=== PATIENT | male | born 1960 | race Caucasian/White ===

== ENCOUNTER 2017-01-03 22:05 | Inpatient (IN) | payer OTHER, MEDICARE ==
[~2017-01-03] VITALS: Ht 165.1 cm; Wt 156.8 kg
[2017-01-04] VITALS (39 sets, daily range): BP systolic 68–122; BP diastolic 43–65; O2SAT 99
[2017-01-04] MEDS ORDERED: PROPOFOL 1,000 MG/100 ML VIAL As Ordered ONE (01:09)
[2017-01-04] MEDS ORDERED: JANU100T PO (01:41)
[2017-01-04] MEDS ORDERED: METF500T13 PO (01:41)
[2017-01-04] MEDS ORDERED: PRED5TA PO (01:41)
[2017-01-04] MEDS ORDERED: APIDINJ INJ (01:41)
[2017-01-04] MEDS ORDERED: PROAAER10 INH (01:41)
[2017-01-04] MEDS ORDERED: IPRASOL4 INH ×2 (01:41)
[2017-01-04] MEDS ORDERED: INSUDET SC (01:41)
[2017-01-04] MEDS ORDERED: COMBAER6 INH (01:41)
[2017-01-04] MEDS ORDERED: RAMI5CA PO (01:41)
[2017-01-04] MEDS ORDERED: IPRATROPIUM 0.5MG/ALBUTEROL 2.5MG INH SOL UD 3ML (DUONEB)(J7620) INH PRN (01:45)
[2017-01-04] MEDS ORDERED: ONDANSETRON 4MG/2ML VIAL (J2405) IV PRN (01:45)
[2017-01-04] MEDS ORDERED: GLUCOSE 4 GM CHEW TABLET PO PRN (01:45)
[2017-01-04] MEDS ORDERED: DEXTROSE 50% 50 ML SYRINGE IV PRN (01:45)
[2017-01-04] MEDS ORDERED: GLUCAGON FOR INJ 1 MG VIAL (J1610) SC PRN (01:45)
[2017-01-04] MEDS: NS 1,000 ML IV SCH ×3 (01:59→21:30)
[2017-01-04] MEDS ORDERED: MORPHINE 2 MG/ML 1ML SYRINGE IV PRN (02:00)
[2017-01-04] MEDS: HumaLOG INSULIN (NovoLOG) PER UNIT SC SCH ×4 (02:15→17:40)
[2017-01-04] MEDS: IPRATROPIUM 0.5MG/ALBUTEROL 2.5MG INH SOL UD 3ML (DUONEB)(J7620) NEB SCH ×6 (02:38→23:28)
[2017-01-04] MEDS: PROPOFOL 1,000 MG in APPROPRIATE DILUENT 1 EA IV SCH ×5 (02:43→20:51)
[2017-01-04] MEDS ORDERED: NOREPINEPHRINE BITARTRATE 8 MG in D5W 500 ML IV SCH (02:45)
[2017-01-04 03:16] LABS: ABG BASE EXCESS 1.2 (-2.0-2.0); ABG HCO3 26.6 MEQ/L (22.0-26.0); ABG PARTIAL PRESSURE CO2 45.2 mmHg (35.0-45.0); ABG STANDARD HCO3 25.5 MEQ/L (22.0-26.0); ABG pH (ARTERIAL) 7.388 UNITS (7.350-7.450)
[2017-01-04] MEDS: MIDAZOLAM INJ 2 MG/2 ML VIAL (J2250) IV PRN (03:25)
[2017-01-04 03:27] LABS: ADD MANUAL DIFFER YES; DIFF SLIDE NUMBER 91; MEAN CORPUSCULAR HEMOGLOBIN 29.5 pg (27.0-33.0); MEAN CORPUSCULAR HGB CONC 32.6 g/dl (32.0-36.5); MEAN CORPUSCULAR VOLUME 90.6 fl (80.0-96.0); RED CELL DISTRIBUTION WIDTH 13.7 % (11.5-14.5); WHITE BLOOD COUNT 16.3 K/mm3 (4.0-10.0)
[2017-01-04 04:00] LABS: CREATININE FOR GFR 1.43 MG/DL (0.70-1.30); GLOMERULAR FILTRATION RATE 54.9 (>56); POTASSIUM SERUM 4.6 MEQ/L (3.5-5.1)
[2017-01-04 04:03] LABS: PLATELET COUNT, AUTOMATED 54 k/mm3 (150-450)
[2017-01-04 04:04] LABS: ALBUMIN/GLOBULIN RATIO 0.5 (1.00-1.93); BILIRUBIN,TOTAL 0.7 MG/DL (0.2-1.0); CALCIUM LEVEL 8.4 MG/DL (8.5-10.1); CREATININE FOR GFR 1.4 MG/DL (0.70-1.30); GLOMERULAR FILTRATION RATE 56.2 (>56); POTASSIUM SERUM 4.6 MEQ/L (3.5-5.1)
[2017-01-04 04:07] LABS: BANDS 7 % (< 11)
[2017-01-04 04:08] LABS: TOXIC GRANULATION 1+; TOXIC VACUOLATION 1+
[2017-01-04] MEDS: HEPARIN SOD (PORCINE) 5000 UNITS/ML VIAL SC SCH ×2 (05:47→05:53)
[2017-01-04] MEDS ORDERED: HYDROCORTISONE 100 MG/2 ML VIAL (J1720) IV SCH (06:00)
[2017-01-04] MEDS ORDERED: AMIKACIN 1000 MG/4 ML VIAL (J0278) IV SCH (06:15)
--- NOTE | 2017-01-04 06:15 | HPEPDOC ---
General Date of Admission Jan 04, 2017 at 00:46 Other Providers PCP: WILI Khan Expediter: Dr Laazro Chief Complaint The patient is a 56-year-old male admitted with a reason for visit of Respiratory Failure. Source: Family, RN notes reviewed Exam Limitations: Clinical conditions History of Present Illness This is a 56-year-old male admitted with a PMH of morbid obesity, HTN, DM2, COPD -steroid dependent, chronic hypoxic respiratory failure on 3L home o2, JOE on CPAP, tobacco abuse, neuropathy, psoriasis, scrotal cyst, L arm weakness secondary brachial plexus injury who was transferred from [facility] for [facility] with acute hypercapnic respiratory failure on [facility] ventilation. Pt had been admitted the prior day at [facility] with complaints of malaise, decreased po intake, dyspnea and subjective fevers. His initial CXR did not show any sig infiltrate and while his initial ABG showed some hypoxia, there was no evidence of acute CO2 retention and was mildly acidotic at 7.35. He was also noted to have aaliyah with a cre of 1.5 (baselilne <1), lactic acidosis of 5, leukocytosis of 14, and hyperglycemia in 300's. Pt started on levo due to reported PCN allergy with mild improvement of his cre (1.2), and with his LA normalizing and his WBC improving. Later that day, pt noted to be lethargic and ABG drawn at that time showed acute co2 retention with pCO2 in 70's and pH of about 7.2. Pt intubated with report that purulent sputum suctioned after intubation, but no food to suggest aspiration. His BP remained stable throughout. Pt's abx broadened to add clinda and [facility] called for transfer. Prior transfer, pt started bucking the vent and given propofol which dropped his bp to 80's and levophed started through a peripheral. CVC placed by attg at [facility] and pt transferred to [facility] for higher level of care. Home Medications Scheduled (Apidra) 100 Unit/Ml Inj, 15 UNIT INJ WM, (Reported) Albuterol/Ipratropium (Combivent Respimat 20-100 Mcg/Act) 1 Aer Aer, 1 PUFF INH QID, (Reported) Albuterol/Ipratropium (Ipratropium Cyclone/Albut 0.5-2.5 (3) mg/3Ml) 1 Dnoell Donell, 1 DONELL INH QID, (Reported) Insulin Detemir (Levemir) 1 Units/0.01 Ml Susp, 80 UNITS SC BID, (Reported) Metformin Hydrochloride (Metformin HCl) 500 Mg Tab, 1,000 MG PO BID, (Reported) Prednisone (Prednisone) 5 Mg Tab, 15 MG PO DAILY, (Reported) Ramipril (Ramipril) 5 Mg Cap, 5 MG PO DAILY, (Reported) Sitagliptin Phosphate (Januvia) 100 Mg Tab, 100 MG PO DAILY, (Reported) Scheduled PRN Albuterol Sulfate (Proair Hfa) 108 Mcg/Act Aer, 2 PUFF INH Q4H PRN for SHORTNESS OF BREATH, (Reported) Albuterol/Ipratropium (Ipratropium Cyclone/Albut 0.5-2.5 (3) mg/3Ml) 1 Donell Donell, 1 DONELL INH Q4H PRN for SHORTNESS OF BREATH, (Reported) Allergies Coded Allergies: Penicillins (Unverified Allergy, Severe, ANAPHYLAXIS, 01/04/17) Past Medical History Medical History 1. Morbid obesity 2. HTN 3. DM2 4. COPD steroid-dependent 5. Chronic hypoxic respiratory failure 3L home o2 6. JOE on CPAP 7. Tobacco abuse 8. Neuropathy 9. Psoriasis 10. L arm hemiplegia weakness secondary brachial plexus injury Surgical History 1. L shoulder nerve graft 2. Scrotal cyst drainage x2 Family History Significant Family History: No pertinent family hx Social History * Smoker: current smoker Alcohol: rarely Recent Travel/Sick Contacts: Denies: Recent travel Psychosocial History: No pertinent psych hx Review of Symptoms Hematologic: Denies: Bruising, Bleeding Excessively, Petecchia, Purpura, Enlarged Lymph Nodes, Other Hematologic Other systems As per HPI, unable to obtain from pt due to intubation Physical Examination General Exam: Positive: Other (Intubated and sedated) Eye Exam: Positive: Conjunctiva & lids normal, Negative: Sclera icteric ENT Exam: Positive: Atraumatic, Mucous membr. moist/pink (ET tube) Neck Exam: Positive: Supple, Negative: Lymphadenopathy Chest Exam: Positive: Rhonchi (Diffuse RML/RLL), Diminished (L base), Negative: Wheezing Heart Exam: Positive: Rate Normal, Regular Rhythm, Normal S1, Normal S2, Negative: Tachycardic, Bradycardic, Gallops, Murmurs, Rubs Abdomen Exam: Positive: Normal bowel sounds, Negative: BS Hyperactive, BS Hypoactive Extremity Exam: Negative: Clubbing, Cyanosis, Edema (Feet cool R>L, but with normal cap refill (<3 secs)), Normal pulses Skin Exam: Positive: Nl turgor and temperature, Rash (Diffuse psoriatic rash), Breakdown (Intertrigal folds with lara and some maceration of skin) Neuro Exam: Positive: Other (Moved feet to noxious stimuli (normal babinski)) Psych Exam: Positive: Other (Pt sedated, could not assess) Vital Signs Vital Signs Date Time Temp Pulse Resp B/P (MAP) Pulse Ox O2 Delivery O2 Flow Rate FiO2 01/04/17 04:00 20 01/04/17 04:00 Ventilator 01/04/17 04:00 98.9 116 101/53 (69) 94 40 Laboratory Data Labs 24H Laboratory Tests 2 01/04/17 01:15: Bedside Glucose (Misc Panel) 215H 01/04/17 02:37: Blood Gas Bicarbonate Standard 25.5, Arterial Blood pH 7.388, Arterial Blood Partial Pressure CO2 45.2H, Arterial Blood Partial Pressure O2 99.0, Arterial Blood Total CO2 28.0, Arterial Blood HCO3 26.6H, Arterial Blood Base Excess 1.2 , Arterial Blood Oxygen Saturation 97.8, Lactic Acid Level 1.6 01/04/17 03:18: Neutrophils 75, Band Neutrophils 7, Lymphocytes (Manual) 10L, Monocytes (Manual ) 8, Toxic Granulation 1+, Toxic Vacuolation 1+, Platelet Estimate DECREASED, Anion Gap 7L, Glomerular Filtration Rate 56.2, Blood Urea Nitrogen 55H, Creatinine 1.40H, Sodium Level 138, Potassium Level 4.6, Chloride Level 104, Carbon Dioxide Level 27, Calcium Level 8.4L, Phosphorus Level 2.0L, Aspartate Amino Transf (AST/SGOT) 41H, Alanine Aminotransferase (ALT/SGPT) 43, Lactate Dehydrogenase 227, Total Creatine Kinase 312H, Alkaline Phosphatase 118H, Total Bilirubin 0.7, Triglycerides Level 177H, Cholesterol Level 82, Total Protein 6.0L, Albumin 2.0L, Albumin/Globulin Ratio 0.50L, Thyroid Stimulating Hormone ( TSH) 0.619 CBC/BMP Laboratory Tests 01/04/17 03:18 Red Blood Count 4.60, Mean Corpuscular Volume 90.6, Mean Corpuscular Hemoglobin 29.5, Mean Corpuscular Hemoglobin Concent 32.6, Red Cell Distribution Width 13.7 , Calcium Level 8.4 L, Phosphorus Level 2.0 L, Aspartate Amino Transf (AST/SGOT ) 41 H, Alanine Aminotransferase (ALT/SGPT) 43, Lactate Dehydrogenase 227, Total Creatine Kinase 312 H, Alkaline Phosphatase 118 H, Total Bilirubin 0.7, Triglycerides Level 177 H, Cholesterol Level 82, Total Protein 6.0 L, Albumin 2.0 L Assessment/Plan This is a 56-year-old male admitted with a PMH of morbid obesity, HTN, DM2, COPD -steroid dependent, chronic hypoxic respiratory failure on 3L home o2, JOE on CPAP, tobacco abuse, neuropathy, psoriasis, scrotal cyst, L arm weakness secondary brachial plexus injury who was transferred from [facility] for [facility] with [facility] 1. PNA and sepsis with multi-organ failure (resp failure on vent; hypotension on pressors, aaliyah) Pt started on levo due to pcn allergy Clinda added when pt condition worsened Would continue levo, add amikacin (pt has reported allergy of anaphylaxis to pcn ) and vanc (possible community acquired MRSA) Elevate HOB to 30-degrees Rose for strict i/o Propofol drip for sedation Versed prn agitation Morphine prn for pain Chlorhexadine wash for mouth Continue nebs q6h Continue iv steroids-solucortef 100mg iv q8 Repeat CXR and abg in am Pulm consult appr-dr kate for help with vent management 2. COPD steroid dependent Continue nebs q6h with q4h prn Steroids changed from solumedrol to solucortef due to sepsis on vent Repeat cxr/abg in am 3. DM2 Metformin 1,000mg held due to aaliyah Januvia 100mg held due to intubation Continue levemir Continue FS with coverage q6h Adjust levemir based on 24hr coverage needs 4. HTN Ramapril held due to hypotension and aaliyah 5. DVT prophylaxis SCD-pt with thrombocytopenia (likely from sepsis) but would not use pharmacologic prophylaxis 6. 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 Plan / VTE VTE Prophylaxis Ordered?: Yes Plan / Urinary Catheter Urinary Catheter: Place Rose Reason for insertion/continuin: Critical Pt monitoring Norm Puentes MD Jan 04, 2017 05:14
[2017-01-04] MEDS ORDERED: VANCOMYCIN HCL 1,000 MG in D5W 0 ML IV SCH (06:30)
[2017-01-04] MEDS ORDERED: LevoFLOXacin IV 750 MG in APPROPRIATE DILUENT 1 EA IV SCH (07:00)
[2017-01-04] MEDS ORDERED: VANCOMYCIN HCL 1,000 MG, VIAL MATE ADAPTER 1 EACH in D5W 250 ML IV SCH (08:00)
[2017-01-04] MEDS ORDERED: IPRATROPIUM 0.5MG/ALBUTEROL 2.5MG INH SOL UD 3ML (DUONEB)(J7620) INH SCH (08:00)
--- NOTE | 2017-01-04 08:08 | REP ---
Clinical: Swelling. Technique: Weaver scale and color Doppler evaluation using linear high frequency transducer. Findings: Ultrasound examination of the right and left lower extremity deep venous structures from the common femoral vein to the popliteal vein demonstrates normal compressibility flow and wave patterns in response to respiration and augmentation. There is no evidence for deep venous thrombosis. Impression: No evidence for deep venous thrombosis bilateral lower extremities . Signed by Dave Tomas MD 01/04/2017 08:00 A
[2017-01-04] MEDS: PANTOPRAZOLE 40MG INJ (PROTONIX) (C9113) IV SCH (08:34)
[2017-01-04] MEDS: CHLORHEXIDINE GLUCONATE 0.12 % 15ML UDC (PERIDEX ORAL RINSE) MT SCH ×2 (08:34→22:16)
[2017-01-04] MEDS: LEVEMIR (INSULIN DETEMIR) 1 UNITS/0.01ML SC SCH ×2 (08:35→22:15)
--- NOTE | 2017-01-04 08:46 | REP ---
PORTABLE CHEST, ONE VIEW: HISTORY: Tube placement. COMPARISON: 12:04 A.M., 01/04/2017. A minimal increase interstitial markings is present in the lungs consistent with chronic interstitial change. The heart is normal in size. The pulmonary vasculature is normal in appearance. An ET tube and central venous line are present. IMPRESSION: No acute disease. Signed by Travis Faustin MD 01/04/2017 08:52 A
--- NOTE | 2017-01-04 08:49 | REP ---
PORTABLE CHEST, ONE VIEW: HISTORY: Respiratory failure. COMPARISON: 1:16 a.m., 01/04/2017. An increase in interstitial markings is present in the lungs consistent with chronic interstitial change. Increased density is present in the lower lobes consistent with bibasilar atelectasis of infiltrates. The heart is normal in size. The pulmonary vasculature is normal in appearance. An ET tube, NG tube and central line are present. IMPRESSION: Bibasilar atelectasis or infiltrates. Signed by Travis Faustin MD 01/04/2017 08:52 A
[2017-01-04] MEDS: LevoFLOXacin IV 750 MG in APPROPRIATE DILUENT 1 EA IV SCH (09:00)
[2017-01-04] MEDS ORDERED: VANCOMYCIN HCL 1,000 MG, VIAL MATE ADAPTER 1 EACH in D5W 250 ML IV ONE (09:00)
[2017-01-04] MEDS ORDERED: LEVEMIR (INSULIN DETEMIR) 1 UNITS/0.01ML SC SCH (09:00)
--- NOTE | 2017-01-04 10:51 | PHACANCOPD ---
PHARMACY VANCOMYCIN DOSING Pt Demographics Demographics Patient Age:56 , Weight:155.300 , Gender: male Adjusted Body Weight Date: 01/04/17, Adjusted Body Weight: [99] Kg Events Past 24 Hours Events Past 24 Hours: YES: Dialysis, Diuretic Therapy, Change in CrCl, Fever, Elevation in WBC, Pending Diagnostics, Pending Procedures, Other Vancomycin Vancomycin indication: POSSIBLE MRSA, PNA, SEPSIS Vancomycin Target Ranges: 15-20 mcg/ml Vancomycin Load Y/N: Yes Load Dose Date Time Vancomycin Load Dose: 2000 MG Date: 01/04/2017 Time: 0800 Vancomycin Dose Date: 01/04/17. Current Vancomycin Dose: [1000MG IV Q12H @ 1999] Intermittent Dosing?: No Labs Labs Item Value Date Time Creatinine 1.43 MG/DL H 01/04/17317 Creatinine 1.40 MG/DL H 01/04/178 White Blood Count 16.3 K/mm3 H 01/04/17317 Creatinine Clearance Date:01/04/17. Creatinine Clearance: [50ML/MIN]. Pending Labs VANCO TROUGH 01/05 @1900 Assessment and Plan Maintaining Current Dose?: Yes Reason for dose change: No Dose Change Pharmacist Note Pharmacist Note Date: 01/04/17. Pharmacist note: Patient was administered Vanco 2 gram loading dose @ 0800 followed by 1 gram q12h. Patient is has ALFRED. Trough is scheduled after 3 doses (01/05/17 @ 1900). Monitor renal function and adjust dose as needed. JUAN POSEY PHARMACY Jan 04, 2017 10:51
--- NOTE | 2017-01-04 11:44 | CCN ---
DATE: 01/04/2017 NOTE: I was asked by Dr. Puentes to emergently evaluate Mr. Spence for acute on chronic respiratory failure requiring mechanical ventilation. Mr. Spence is a 56-year-old now with past medical history consisting of chronic obstructive pulmonary disease (COPD), diabetes mellitus, type 2, morbid obesity, and obstructive sleep apnea, who presented to [facility] on 01/02/2017 with complaints of several days of feeling unwell with a dry mouth, feelings of dehydration, decreased intake. He had a minimal productive cough and severe chills, the day prior to his admission. He was admitted with what was felt to be a COPD exacerbation, acute kidney injury, uncontrolled diabetes and possible pneumonia and scrotal cellulitis. He had been placed on Levaquin, clindamycin, and per the discharge summary, his kidney injury and elevated lactic acid were improved. According to his , one of his sons was with him when he seemed to acutely decompensate. She reports that a code was called and then he was intubated. I do not have any further information as to what it was felt caused the decompensation. It was reported to us at the time of his intubation, that his blood pressure was normal. Subsequent to intubation, he became hypotensive and required vasopressor therapy. He was then transferred to [facility]. OBJECTIVE: GENERAL: Mr. Spence is lying in bed synchronous with the ventilator. VITAL SIGNS: Temperature 98.6, pulse 118, respiratory rate 25, blood pressure 97/55 with an MAP of 69, GOLDMAN 293 and an FiO2 0.4. HEENT: Anicteric, pupils 2 mm and reactive. Nares: Patent bilaterally. Oropharynx: ET tube and OG tube in place. NECK: Supple, unable to determine jugular venous distention (JVD). LUNGS: Symmetric excursion, good air entry, no wheeze, rhonchi or significant crackles. Decreased breath sounds at the bases bilaterally. Normal I/E. NO accessory muscle uses or retractions. CARDIOVASCULAR: Tachycardic regular rhythm, normal S1, S2, no murmur rub or gallop appreciated. ABDOMEN: Positive bowel sounds, soft, nondistended, nontender with no hepatosplenomegaly or masses appreciated. Scrotal area is very erythematous, edematous but not excoriated. EXTREMITIES: Lower extremities are cool, there is 1+ pedal edema bilaterally, palpable pedal pulses. No clubbing or cyanosis. LABORATORY DATA: The following labs are from 01/03/2017 (0600) from [facility]: Sodium 134, potassium 5.0, chloride 93, bicarbonate 22, glucose 448, BUN 46, creatinine 1.2. Total protein 6.8, albumin 3.2, calcium 8.7, total bilirubin o.8, alkaline phosphatase 144, AST 37, ALT 52, anion gap 19. Lactic acid 2.5. Hemoglobin 14.2, hematocrit 42.3, platelet count 78,000, white blood cell count 14,400 with a differential of 91% neutrophils, 1% lymphocytes, 7% monocytes. Urinalysis from 01/02/2017 showed a specific gravity of 1.02, pH of 5, glucose of 1000, 30 of protein, 50 of blood. His CBC from 01/02/2017, which was on presentation was hemoglobin 13.5, hematocrit 40.3, platelet count 96,000 with a white blood cell count of 12,400 with a differential of 83% neutrophils, 4% bands, and 6% monocytes. Arterial blood gas on 01/02/2017 on 4 liters was 7.34/46/91 with a measured saturation of 96% and a base excess of -2.0. I reviewed his chest x-ray as well as the report from 01/02/2017. That showed normal appearing cardiac silhouette and pulmonary vascular shadows. Normal appearing mediastinal region. There were chronic interstitial changes. No consolidative regions. I reviewed his chest x-rays from 01/03/2017 and they were under penetrated and rotated. I did not feel that I can fairly comments as to whether or not there may have been some increased interstitial markings or not. The endotracheal tube was in good position. On the chest x-ray from 01/04/2017, endotracheal tube is in good position. Again, I could not see any significant difference, but the bases were under penetrated and there was a pad overlying the center of the chest. ASSESSMENT: 1. Acute on chronic respiratory failure: I do not have much history as to how acute these changes were. If it was acute, differential would include aspiration, mucous plugging, cardiac event, pulmonary embolism, or other. As to the chronic portion, he carries the label of COPD, though I do not know how that diagnosis was made. Sleep apnea would be in the differential for causing the chronic failure as would be obesity hypoventilation syndrome. 2. Hypotension: This is relatively new difficulty and followed intubation. I suspect it is secondary to medications given for that process. Differential would include sepsis, pulmonary embolus, or other. 3. Sepsis. It is not clear that he has severe sepsis. 4. Diabetes mellitus. 5. Acute kidney injury. 6. Probable scrotal cellulitis. 7. Possible COPD (I do not have spirometric numbers). 8. Obstructive sleep apnea, on bilevel therapy: He was evaluated in [address] Lazaro and his does not believe that he has followed up with them. I do not know his weight at the time of diagnosis versus now whether any adjustments have ever been made or considered in his bilevel therapy. 9. Extreme obesity. 10. Tobacco use history ongoing at the time of admission (1-1/2 packs per day). 11. Deep venous thrombosis prophylaxis, subcutaneous heparin. 12. Stress ulcer prophylaxis: Proton pump inhibitor. 13. Nutrition: Nothing by mouth. RECOMMENDATIONS: 1. Given the labs were at 6 -o'clock in the morning yesterday and he has had major clinical changes, we should repeat CBC, chemistries at this time as well as a lactic acid. 2. Will place him on lung protective ventilator strategy with his 6 mL/kilo predicted body weight tidal volume being 466 mL. 3. While he has acute onset of shortness of breath and pulmonary embolism is in the differential, I am not highly suspicious of it. Unfortunately, his body habitus and kidney function limit some of the studies that could be done, but I feel we should obtain lower extremity Dopplers. 4. Antibiotics and glucose management per hospital service. Critical care time: 70 minutes not including procedure time. MTDD
[2017-01-04] MEDS: ACETAMINOPHEN TAB 650MG DOSE (2X325MG) PO PRN (12:21)
[2017-01-04] MEDS ORDERED: POTASSIUM PHOSPHATE INJ 30 MMOL in D5W 500 ML IV ONE (13:00)
--- NOTE | 2017-01-04 17:42 | REP ---
Scrotal sonography: History: Scrotal swelling. Findings: High-resolution bilateral scrotal sonography demonstrates homogeneous testicular parenchyma on both sides. There is no evidence of intratesticular mass lesion. No hydrocele or hernia is seen. Right testis measures 4.5 x 2.1 x 2.5 cm. Left testicular dimensions are 4.6 x 1.6 x 2.6 cm. Epididymi are unremarkable and symmetric. Normal Doppler flow is seen in each testis. Resistive indices are 0.52 on the right and 0.54 on the left. Impression: Unremarkable scrotal sonography. Normal Doppler flow. No intratesticular mass lesion seen. Signed by Rico Tijerina MD 01/05/2017 09:24 A
[2017-01-04] MEDS: VANCOMYCIN HCL 1,000 MG, VIAL MATE ADAPTER 1 EACH in D5W 250 ML IV SCH (20:50)
--- NOTE | 2017-01-04 21:27 | CCN ---
DATE: 01/04/2017 NOTE: Mr. Spence remains critically ill with acute respiratory failure leading to mechanical ventilation. Overnight, his vasopressors have been decreased and he remains with a good mean arterial pressure (MAP). He has had fevers. On his sedation holiday, he was following commands. GENERAL: He is synchronous with the ventilator. VITAL SIGNS: Temperature 101.4, pulse 111, respiratory rate 16, blood pressure 110/58 with a MAP of 75, SpO2 of 99% on an FiO2 of 0.4. HEENT: Anicteric. Pupils equal, round, and reactive to light (PERRL). Nares patent bilaterally. Endotracheal (ET) and orogastric (OG) tube in place. NECK: Possibly mild increased jugular venous pressure (JVP), though difficult exam. Trachea is midline. LUNGS: Symmetric excursion. Good air entry. No wheeze, rhonchi, or crackle on tidal excursion. Diminished breath sounds at the bases bilaterally. No significant crackles or wheeze. Normal I-to-E. CARDIOVASCULAR: Tachycardiac. Regular rhythm. Normal S1, S2. No murmur, rub, or gallop appreciated. ABDOMEN: Positive bowel sounds. Soft, nondistended. No hepatosplenomegaly or masses appreciated on difficult exam given body habitus. SCROTUM: No significant edema. Decreased erythema. No clear findings suggestive of cellulitis. EXTREMITIES: 1+ pedal edema bilaterally. Sequential compression devices (SCDs) and thromboembolism deterrents (TEDs) in place. LABORATORY DATA: Arterial blood gas on pressure-regulated volume control (PRVC) with a tidal volume of 415, rate 15, PEEP 8, and FiO2 of 0.4 was 7.39/45/99 with a measured saturation 98% and a base excess of 1.2. Chemistry showed sodium 138, potassium 4.6, chloride 104, bicarbonate 27, anion gap 7, BUN 55, creatinine 1.4, glucose 237, lactic acid 1.6, calcium 8.4, phosphorus 2.0, magnesium 3.0, total bilirubin 0.7, AST 41, ALT 43, alkaline phosphatase 118, LDL 227, CK 312, total protein 6.0, albumin 2.0, TSH 0.619, cortisol pending. CBC showed a hemoglobin of 13.6, hematocrit 41.7, platelet count 54,000, and white blood cell count 16,300 with a differential of 75% neutrophils, 7% bands, and 10% lymphocytes. I reviewed his chest x-ray as well as the report from earlier this morning. That x-ray showed possibly mildly enlarged cardiac silhouette. I can see both diaphragms. No consolidated region. ET tube is in good position. Right internal jugular (IJ) is in good position. Lower extremity Doppler report is negative bilaterally. IMPRESSION: 1. Acute hypoxemic respiratory failure leading to mechanical ventilation. Etiology for the acute portion again is unclear. This does not appear to be a chronic obstructive pulmonary disease (COPD) exacerbation. No signs suggestive of significant pneumonic process. Again, it is not clear if this is acute onset , in which case the differential would include flash pulmonary edema, cardiac arrhythmia, or other. He has a negative bilateral lower extremity Doppler, making pulmonary embolism (PE) less likely. 2. Hypotension on vasopressors. The hypotension came after intubation and while I feel he has sepsis, I do not feel this is reflective of severe sepsis with shock. Lactic acid only 1.7. 3. Sepsis. He has an elevated white blood cell (WBC) count and a fever. The WBC count is difficult to interpret given that he has been on corticosteroids. However, he has positive blood cultures that would be most consistent with a skin source, question if this is secondary to cellulitis. 4. Thrombocytopenia. This is likely secondary to sepsis. Will need to exclude disseminated intravascular coagulation (DIC). 5. Diabetes mellitus. 6. Acute kidney injury. 7. Possible scrotal cellulitis, though it looks better today. 8. Chronic obstructive pulmonary disease. 9. Cor pulmonale per history. 10. Tobacco usage, ongoing at the time of admission. 11. Deep venous thrombosis (DVT) prophylaxis with subcutaneous heparin. 12. Stress ulcer prophylaxis. Proton pump inhibitor. 13. Nutrition. Nothing by mouth. RECOMMENDATIONS: 1. Electrolyte replacement per hospitalist team. 2. Would obtain an echocardiogram. 3. Will obtain a central venous pressure (CVP) to help direct fluid management. 4. Will send blood cultures and urine culture (UC). A sputum culture has been sent. 5. Will continue to followup with [facility] cultures. They had positive blood cultures as outlined below. They did not send a urine culture. A sputum culture was sent there last evening. 6. Will attempt to clarify his outpatient medications and past history. 7. Will consult ear, nose, and throat (ENT), as we were told that anesthesia reported an abnormal lesion on his epiglottis. I do not consider this an emergent consultation. 8. Continue other current cares. ADDENDUM: 1. Blood culture, polymerase chain reaction (PCR) from [facility] from a culture done 01/03/2017 showed Streptococcus and Streptococcus group B positive. 2. Complete pulmonary function test from 03/09/2006, when he weighed 390 pounds , showed a nonspecific decrease in FVC with an FVC of 1.36 liters (27%) and a FEV1 of 0.81 liters (20%). FEV1/FVC ratio was normal at 60%. Normal inspiratory flow volume limb. No significant bronchodilator response. He was unable to perform lung volumes. Diffusing capacity uncorrected for hemoglobin was mildly decreased at 24.7 (67% predicted). Arterial blood gas on room air showed a compensated respiratory acidosis with hypoxemia. He had a pH of 7.36, pCO2 of 73, and pO2 of 42 with a measured saturation of 73.9%. 3. Per Dr. Lazaro's note from 07/30/2004, he had a diagnosis of obstructive sleep apnea (JOE) that was reasonably palliated on bilevel positive airway pressure (BiPAP) at 19/15 with 4 liters oxygen bleed-in, chronic obstructive bronchitis, chronic hypoxemia and hypercapnic respiratory failure, restrictive ventilatory impairment, cor pulmonale, diabetes mellitus, and tobacco abuse. CRITICAL CARE TIME: 40 minutes, not including procedure time. Edited: sunita 01/04/2017 1707 MTDD
[2017-01-04 21:34] LABS: INR 1.08
[2017-01-04 21:51] LABS: MEAN CORPUSCULAR HEMOGLOBIN 29.8 pg (27.0-33.0); MEAN CORPUSCULAR HGB CONC 32.4 g/dl (32.0-36.5); MEAN CORPUSCULAR VOLUME 91.9 fl (80.0-96.0); RED CELL DISTRIBUTION WIDTH 13.9 % (11.5-14.5); WHITE BLOOD COUNT 12.7 K/mm3 (4.0-10.0)
[2017-01-04 22:03] LABS: FIBRINOGEN 815 MG/DL (221-452)
[2017-01-04 22:24] LABS: CORTISOL AM 61.9 UG/DL (4.3-22.4)
[2017-01-05] VITALS (18 sets, daily range): BP systolic 92–149; BP diastolic 52–63; O2SAT 94–99
[2017-01-05] MEDS: HumaLOG INSULIN (NovoLOG) PER UNIT SC SCH ×4 (00:45→17:55)
[2017-01-05] MEDS: MIDAZOLAM INJ 2 MG/2 ML VIAL (J2250) IV PRN (02:21)
[2017-01-05] MEDS: PROPOFOL 1,000 MG in APPROPRIATE DILUENT 1 EA IV SCH (03:17)
[2017-01-05] MEDS: IPRATROPIUM 0.5MG/ALBUTEROL 2.5MG INH SOL UD 3ML (DUONEB)(J7620) NEB SCH ×6 (03:42→19:32)
[2017-01-05] MEDS: NS 1,000 ML IV SCH ×2 (05:51→16:31)
[2017-01-05 06:28] LABS: MEAN CORPUSCULAR HEMOGLOBIN 29.7 pg (27.0-33.0); MEAN CORPUSCULAR HGB CONC 32.4 g/dl (32.0-36.5); MEAN CORPUSCULAR VOLUME 91.8 fl (80.0-96.0)
[2017-01-05 06:36] LABS: ANION GAP 4 MEQ/L (8-16); BLOOD UREA NITROGEN 46 MG/DL (7-18); CALCIUM LEVEL 8.3 MG/DL (8.5-10.1); CARBON DIOXIDE LEVEL 29 MEQ/L (21-32); CHLORIDE LEVEL 107 MEQ/L (98-107); CREATININE FOR GFR 0.94 MG/DL (0.70-1.30); GLOMERULAR FILTRATION RATE > 60.0 (>56); GLUCOSE, FASTING 122 MG/DL (70-105); POTASSIUM SERUM 3.9 MEQ/L (3.5-5.1); SODIUM LEVEL 140 MEQ/L (136-145)
[2017-01-05] MEDS: VANCOMYCIN HCL 1,000 MG, VIAL MATE ADAPTER 1 EACH in D5W 250 ML IV SCH ×2 (07:55→19:59)
[2017-01-05] MEDS: LEVEMIR (INSULIN DETEMIR) 1 UNITS/0.01ML SC SCH ×2 (09:00→21:34)
[2017-01-05] MEDS ORDERED: methylPREDNISolone INJ 40 MG/1 ML VIAL (J2920) IV SCH (09:00)
--- NOTE | 2017-01-05 09:20 | REP ---
PORTABLE CHEST: AP portable view of the chest is performed and compared with prior study of 01/04/2017. Right central venous catheter, endotracheal tube and nasogastric tube are again noted. There is cardiomegaly. There are bibasilar infiltrates/atelectasis again noted. These appear mildly increased on the left and unchanged on the right. Signed by Favio Weaver MD 01/05/2017 05:35 P
[2017-01-05] MEDS: CHLORHEXIDINE GLUCONATE 0.12 % 15ML UDC (PERIDEX ORAL RINSE) MT SCH (09:28)
[2017-01-05] MEDS: PANTOPRAZOLE 40MG INJ (PROTONIX) (C9113) IV SCH (09:28)
[2017-01-05] MEDS: LevoFLOXacin IV 750 MG in APPROPRIATE DILUENT 1 EA IV SCH (09:33)
[2017-01-05 10:45] LABS: ABG BASE EXCESS 0.6 (-2.0-2.0); ABG HCO3 25.5 MEQ/L (22.0-26.0); ABG PARTIAL PRESSURE CO2 42.1 mmHg (35.0-45.0); ABG PARTIAL PRESSURE O2 69.1 mmHg (75.0-100.0); ABG STANDARD HCO3 24.9 MEQ/L (22.0-26.0); ABG TOTAL CO2 26.8 MEQ/L (22.0-29.0)
--- NOTE | 2017-01-05 11:49 | IPNPDOC ---
Subjective Date Seen The patient was seen on 01/05/17. Subjective Chief Complaint/HPI Patient seen and examined at the bedside today. Patient remains intubated and on mechanical ventilation. However, he is currently off sedation and nodding appropriately and following commands. Denies any acute complaints of pain. Objective Physical Examination General Exam: Positive: Alert, No Acute Distress, Other (Patient remains intubated and on mechanical ventilation. However, he is currently off sedation and nodding appropriately and following commands. Denies any acute complaints of pain.) Eye Exam: Positive: Conjunctiva & lids normal, Negative: Sclera icteric ENT Exam: Positive: Atraumatic, Mucous membr. moist/pink (ET tube) Neck Exam: Positive: Supple, Negative: Lymphadenopathy Chest Exam: Positive: Diminished, Negative: Wheezing Heart Exam: Positive: Rate Normal, Regular Rhythm, Normal S1, Normal S2, Negative: Tachycardic, Bradycardic, Gallops, Murmurs, Rubs Abdomen Exam: Positive: Soft, Negative: BS Hyperactive, BS Hypoactive, Tenderness Skin Exam: Positive: Rash (Diffuse psoriatic rash), Breakdown (Intertrigal folds with lara and some maceration of skin) Assessment /Plan Plan/VTE VTE Prophylaxis Ordered?: Yes Plan Acute Respiratory Failure requiring Intubation and Mechanical Ventilation Patient with possible underlying COPD? However PFT's from 2006 outpatient pulmonary records show non-specific decrease in FVC and FEV1 with an underlying history of JOE, chronic obstructive bronchitis, chronic hypoxemia and hypercarbia, with restrictive ventilatory impairment and cor pulmonale Suffice to say, the patient will need PFT's done as an outpatient once he is back to his respiratory baseline At this time we will cont to the patient on Nebs, Vanco/Levaquin and IV Steroids ABG, CXR noted from this AM Patient noted to be nodding appropriately and following commands while off sedation this AM Pulmonary on board Will follow up with Pulmonary regarding weaning trial, possible extubation today We will cont to monitor the patient in the ICU today Streptococcus Bacteremia Patient noted to be positive for Streptococcus Bacteremia and Strep B positive from blood cultures, PCR drawn in [place] Repeat Blood Culture x 1 here reveals preliminary cultures positive for Gram Positive Cocci in clusters, 2nd bottle pending Patient on Vancomycin at this time We will await further speciation of the cultures Source of infection unclear, however the patient does have some erythematous skin changes from chronic underlying Psoriasis. May also be from the respiratory tract. 2D ECHO pending We will follow up with blood cultures, trend fever curve Acute Kidney Injury, resolved s/p IVF Hydration Serum Cr back to within normal limits Leukocytosis likely 2/2 Steroids Diabetes Mellitus Continue levemir, FS with coverage q6h HTN, stable Thrombocytopenia possibly 2/2 Sepsis Platelet count improving Doesn't appear to be 2/2 DIC as the patient's PT, PTT, and Fibrinogen levels does not suggest this Hx of JOE Will follow up with Pulmo recommendations following extubation GI Prophylaxis Protonix DVT prophylaxis SCDs Prognosis: Guarded VS, I&O, 24H, Fishbone Vital Signs/I&O Vital Signs Date Time Temp Pulse Resp B/P (MAP) Pulse Ox O2 Delivery O2 Flow Rate FiO2 01/05/17 10:00 22 30 01/05/17 10:00 99.0 118 114/61 (78) 94 Ventilator I&O- Last 24 Hours up to 6 AM 01/05/17 06:00 Intake Total 4075.6 ml Output Total 2740 ml Balance 1335.6 ml Laboratory Data 24H LABS Laboratory Tests 2 01/04/17 11:54: Bedside Glucose (Misc Panel) 248H 01/04/17 17:33: Bedside Glucose (Misc Panel) 209H 01/04/17 21:05: Prothrombin Time 14.2, Prothromb Time International Ratio 1.08, Activated Partial Thromboplast Time 30.9, Fibrinogen 815H, D-Dimer, Quantitative > 4000.0H 01/04/17 22:13: Bedside Glucose (Misc Panel) 191H 01/05/17 00:40: Bedside Glucose (Misc Panel) 192H 01/05/17 05:49: Bedside Glucose (Misc Panel) 151H 01/05/17 06:01: Anion Gap 4L, Glomerular Filtration Rate > 60.0, Blood Urea Nitrogen 46H, Creatinine 0.94, Sodium Level 140, Potassium Level 3.9, Chloride Level 107, Carbon Dioxide Level 29, Calcium Level 8.3L, C-Reactive Protein, Quantitative 18.30H 01/05/17 10:21: Blood Gas Bicarbonate Standard 24.9, Arterial Blood pH 7.400, Arterial Blood Partial Pressure CO2 42.1, Arterial Blood Partial Pressure O2 69.1L, Arterial Blood Total CO2 26.8, Arterial Blood HCO3 25.5, Arterial Blood Base Excess 0.6, Arterial Blood Oxygen Saturation 93.7L CBC/BMP Laboratory Tests 01/04/17 21:05 Red Blood Count 4.20 L, Mean Corpuscular Volume 91.9, Mean Corpuscular Hemoglobin 29.8, Mean Corpuscular Hemoglobin Concent 32.4, Red Cell Distribution Width 13.9 01/05/17 06:01 Red Blood Count 3.99 L, Mean Corpuscular Volume 91.8, Mean Corpuscular Hemoglobin 29.7, Mean Corpuscular Hemoglobin Concent 32.4, Red Cell Distribution Width 14.0, Calcium Level 8.3 L Microbiology Microbiology 01/04/17 Blood Culture - Preliminary, Resulted 01/04/17 Blood Culture, Received Pending 01/04/17 Gram Stain - Final, Resulted 01/04/17 Sputum Culture, Resulted Pending KATHE DOE MD Jan 05, 2017 11:49
--- NOTE | 2017-01-05 19:39 | PHACANCOPD ---
PHARMACY VANCOMYCIN DOSING Pt Demographics Demographics Patient Age:56 , Weight:155.800 , Gender: male Adjusted Body Weight Date: 01/04/17, Adjusted Body Weight: [99] Kg Events Past 24 Hours Events Past 24 Hours: YES: Change in CrCl Vancomycin Vancomycin indication: POSSIBLE MRSA, PNA, SEPSIS Vancomycin Target Ranges: 15-20 mcg/ml Vancomycin Load Y/N: Yes Load Dose Date Time Vancomycin Load Dose: 2000 MG Date: 01/04/2017 Time: 0800 Vancomycin Dose Date: 01/05/17. Current Vancomycin Dose: [1000MG IV Q8H @20] Date: 01/04/17. Current Vancomycin Dose: [1000MG IV Q12H @ 2000] Intermittent Dosing?: No Labs Labs Item Value Date Time White Blood Count 16.3 K/mm3 H 01/04/17 0318 White Blood Count 12.7 K/mm3 H 01/04/17 2105 White Blood Count 12.0 K/mm3 H 01/05/17 0601 Creatinine 1.43 MG/DL H 01/04/17 0318 Creatinine 1.40 MG/DL H 01/04/17 0318 Creatinine 0.94 MG/DL 01/05/17 0601 C-Reactive Protein, Quantitative 18.30 MG/DL H 01/05/17 0601 Micro Microbiology 01/04/17 Blood Culture - Preliminary, Resulted 01/04/17 Blood Culture - Preliminary, Resulted No growth after 24 hours . All specim... 01/04/17 Gram Stain - Final, Resulted 01/04/17 Sputum Culture, Resulted Pending Creatinine Clearance Date:01/05/17. Creatinine Clearance: [78.15ML/MIN.]. Date:01/04/17. Creatinine Clearance: [50ML/MIN]. Pending Labs VANCO TROUGH 01/06 @1900 VANCO TROUGH 01/05 @1900 Assessment and Plan Maintaining Current Dose?: No Reason for dose change: Trough too low Pharmacist Note Pharmacist Note Date: 01/05/17. Pharmacist note: Pt creatinine clearance has improved significantly to 78.15ml/min and the trough came back today after 3 doses at 9.7. We will change dosing to 1g iv q 8 hours @20 and collect another trough @19:00. WBC and C-reactive protein remain elevated. We will continue to monitor and adjust dose as needed. Date: 01/04/17. Pharmacist note: Patient was administered Vanco 2 gram loading dose @ 0800 followed by 1 gram q12h. Patient is has ALFRED. Trough is scheduled after 3 doses (01/05/17 @ 1900). Monitor renal function and adjust dose as needed. PAYTON AVILEZ PHARMACY Jan 05, 2017 19:39
[2017-01-06] VITALS (12 sets, daily range): BP systolic 92–150; BP diastolic 51–70; O2SAT 94
[2017-01-06] MEDS: HumaLOG INSULIN (NovoLOG) PER UNIT SC SCH ×5 (00:16→20:55)
[2017-01-06] MEDS: VANCOMYCIN HCL 1,000 MG, VIAL MATE ADAPTER 1 EACH in D5W 250 ML IV SCH ×3 (04:12→19:32)
[2017-01-06 05:28] LABS: MEAN CORPUSCULAR HEMOGLOBIN 29.4 pg (27.0-33.0); MEAN CORPUSCULAR HGB CONC 31.7 g/dl (32.0-36.5); MEAN CORPUSCULAR VOLUME 92.7 fl (80.0-96.0); RED CELL DISTRIBUTION WIDTH 13.7 % (11.5-14.5); WHITE BLOOD COUNT 11.9 K/mm3 (4.0-10.0)
[2017-01-06 06:07] LABS: ANION GAP 3 MEQ/L (8-16); BLOOD UREA NITROGEN 38 MG/DL (7-18); CALCIUM LEVEL 7.8 MG/DL (8.5-10.1); CARBON DIOXIDE LEVEL 32 MEQ/L (21-32); CHLORIDE LEVEL 106 MEQ/L (98-107); CREATININE FOR GFR 0.81 MG/DL (0.70-1.30); GLOMERULAR FILTRATION RATE > 60.0 (>56); GLUCOSE, FASTING 245 MG/DL (70-105); POTASSIUM SERUM 4.8 MEQ/L (3.5-5.1); SODIUM LEVEL 141 MEQ/L (136-145)
[2017-01-06] MEDS ORDERED: SENNA 8.6 MG TAB (SENOKOT) PO PRN (07:45)
[2017-01-06] MEDS: TIOTROPIUM INHALER/CAPSULE (SPIRIVA) INH SCH (08:00)
[2017-01-06] MEDS: IPRATROPIUM 0.5MG/ALBUTEROL 2.5MG INH SOL UD 3ML (DUONEB)(J7620) NEB SCH ×4 (08:04→19:41)
[2017-01-06] MEDS: LEVEMIR (INSULIN DETEMIR) 1 UNITS/0.01ML SC SCH ×2 (08:33→20:55)
[2017-01-06] MEDS: OMEPRAZOLE 20 MG CAP PO SCH (08:33)
[2017-01-06] MEDS: predniSONE 20 MG TAB PO SCH (08:34)
[2017-01-06] MEDS: LevoFLOXacin IV 750 MG in APPROPRIATE DILUENT 1 EA IV SCH (08:34)
[2017-01-06] MEDS: NS 1,000 ML IV SCH (08:55)
[2017-01-06] MEDS: ADVAIR HFA 230/21MCG INHALER INH SCH ×2 (09:00→19:42)
[2017-01-06 09:18] LABS: MAGNESIUM LEVEL 2.5 MG/DL (1.8-2.4); PHOSPHORUS LEVEL 3.1 MG/DL (2.5-4.9)
--- NOTE | 2017-01-06 09:28 | REP ---
PORTABLE CHEST: AP portable view of the chest is performed. Comparison 01/05/2017. There has been removal of endotracheal tube and nasogastric tube. Right central venous catheter is unchanged. There is cardiomegaly. Bibasilar parenchymal opacities are stable. Signed by Favio Weaver MD 01/06/2017 10:51 A
[2017-01-06] MEDS ORDERED: GLUCAGON FOR INJ 1 MG VIAL (J1610) SC PRN (10:00)
[2017-01-06] MEDS ORDERED: DEXTROSE 50% 50 ML SYRINGE IV PRN (10:00)
[2017-01-06] MEDS ORDERED: GLUCOSE 4 GM CHEW TABLET PO PRN (10:00)
--- NOTE | 2017-01-06 11:07 | IPNPDOC ---
Subjective Date Seen The patient was seen on 01/06/17. Subjective Chief Complaint/HPI Patient seen and examined at the bedside this morning. Status post extubation yesterday. States that he is feeling much better today and denies any acute complaints at this time. Objective Physical Examination General Exam: Positive: Alert, Cooperative, No Acute Distress, Other (morbidly obese) Eye Exam: Positive: Conjunctiva & lids normal, Negative: Sclera icteric ENT Exam: Positive: Atraumatic, Mucous membr. moist/pink Neck Exam: Positive: Supple, Negative: Lymphadenopathy Chest Exam: Positive: Diminished, Negative: Wheezing Heart Exam: Positive: Rate Normal, Regular Rhythm, Normal S1, Normal S2, Negative: Tachycardic, Bradycardic, Gallops, Murmurs, Rubs Abdomen Exam: Positive: Soft, Negative: BS Hyperactive, BS Hypoactive, Tenderness Skin Exam: Positive: Rash (Diffuse psoriatic rash), Breakdown (Intertrigal folds with lara and some maceration of skin) Psych Exam: Positive: Oriented x 3 Assessment /Plan Plan/VTE VTE Prophylaxis Ordered?: Yes Plan Acute Respiratory Failure requiring Intubation and Mechanical Ventilation s/p Extubation on 01/05/17 Patient with possible underlying COPD? However PFT's from 2006 outpatient pulmonary records show non-specific decrease in FVC and FEV1 with an underlying history of JOE, chronic obstructive bronchitis, chronic hypoxemia and hypercarbia, with restrictive ventilatory impairment and cor pulmonale The patient will need PFT's done as an outpatient once he is back to his respiratory baseline Cont to the patient on Nebs, Vanco and steroids transitioned to PO Pulmonary input appreciated We will downgrade the patient to PCU Streptococcus/Staph Bacteremia Patient noted to be positive for Streptococcus Bacteremia and Strep B positive from blood cultures, PCR drawn in [place] Repeat Blood Culture x 1 here reveals preliminary cultures positive for Staph Aureus, 2nd bottle negative Patient on Vancomycin at this time Source of infection unclear, however the patient does have some erythematous skin changes from chronic underlying Psoriasis. Possibly from Respiratory tract as well. These may also be contaminant sources given the different organisms grown and negative 2nd BC bottle. The patient has been afebrile here over the last 24 hrs We will await further speciation of the cultures, and consider de-escalating antibiotics 2D ECHO pending We will follow up with blood cultures, trend fever curve Acute Kidney Injury, resolved s/p IVF Hydration Serum Cr back to within normal limits Leukocytosis likely 2/2 Steroids Diabetes Mellitus Continue levemir, ISS coverage Diet Advanced HTN, stable Thrombocytopenia possibly 2/2 Sepsis Platelet count improving Doesn't appear to be 2/2 DIC as the patient's PT, PTT, and Fibrinogen levels does not suggest this Hx of JOE BiPAP settings as per pulmonary GI Prophylaxis Protonix DVT prophylaxis SCDs VS, I&O, 24H, Fishbone Vital Signs/I&O Vital Signs Date Time Temp Pulse Resp B/P (MAP) Pulse Ox O2 Delivery O2 Flow Rate FiO2 01/06/17 08:05 93 22 01/06/17 08:00 96.9 115/60 (78) 95 Nasal Cannula 3.0 01/06/17 06:00 30 I&O- Last 24 Hours up to 6 AM 01/06/17 06:00 Intake Total 3952.8 ml Output Total 2735 ml Balance 1217.8 ml Laboratory Data 24H LABS Laboratory Tests 2 01/05/17 11:46: Bedside Glucose (Misc Panel) 104 01/05/17 17:42: Bedside Glucose (Misc Panel) 136H 01/05/17 18:29: Vancomycin Level Trough 9.7L 01/05/17 21:03: Bedside Glucose (Misc Panel) 243H 01/06/17 00:11: Bedside Glucose (Misc Panel) 249H 01/06/17 05:14: Anion Gap 3L, Glomerular Filtration Rate > 60.0, Blood Urea Nitrogen 38H, Creatinine 0.81, Sodium Level 141, Potassium Level 4.8#, Chloride Level 106, Carbon Dioxide Level 32, Calcium Level 7.8L, Phosphorus Level 3.1#, Magnesium Level 2.5H 01/06/17 05:59: Bedside Glucose (Misc Panel) 230H CBC/BMP Laboratory Tests 01/06/17 05:14 Red Blood Count 4.24 L, Mean Corpuscular Volume 92.7, Mean Corpuscular Hemoglobin 29.4, Mean Corpuscular Hemoglobin Concent 31.7 L, Red Cell Distribution Width 13.7, Calcium Level 7.8 L Microbiology Microbiology 01/06/17 Blood Culture, Received Pending 01/06/17 Blood Culture, Received Pending 01/04/17 Blood Culture - Preliminary, Resulted Staphylococcus Aureus 01/04/17 Blood Culture - Preliminary, Resulted No growth after 24 hours . All specim... 01/04/17 Gram Stain - Final, Resulted 01/04/17 Sputum Culture - Preliminary, Resulted Staphylococcus Aureus KATHE DOE MD Jan 06, 2017 11:07
--- NOTE | 2017-01-06 13:22 | CCN ---
DATE: 01/05/2017 NOTE: Mr. Spence remains critically ill with acute and chronic hypoxemic and hypercapnic respiratory failure leading to mechanical ventilation. Since yesterday, he has been able to be weaned off vasopressor support. He remains thrombocytopenic. He has been afebrile overnight. Preliminary reports on one out of two blood cultures shows gram positive cocci in clusters. He had his scrotal sonogram yesterday that was unremarkable. On his sedation holiday today , he was awake and alert and following commands. OBJECTIVE: PHYSICAL EXAMINATION: General: Mr. Spence is lying in bed synchronous with the ventilator. Vital signs: Temperature 100.7 which is his T-max, pulse 107, respiratory rate 22, blood pressure 111/63 with a map of 79, SpO2 95% on FiO2 of 0.3. HEENT: Anicteric. Nares: Patent bilaterally. Oropharynx: ET tube and OG tube in place. Neck: Supple without appreciable jugular venous distention (JVD) though difficult to examine, right IJ in place with dressing clean and dry. Trachea is midline. Lymph: Without cervical or supraclavicular lymphadenopathy. Chest: Normal shape. Lungs: Symmetric excursion, good air entry, diminished breath sounds at the bases. No wheeze or rhonchi. Mildly prolonged expiratory phase. No accessory muscle uses or retractions. Cardiovascular: Tachycardic, regular rhythm, normal S1, S2, no murmur, rub or gallop appreciated. Abdomen: Positive bowel sounds, soft, nondistended, nontender. Scrotum with decreased erythema. Extremities: Sequential compression devices (SCD) and thromboembolic deterrent stockings (TEDS) in place, palpable pedal pulses bilaterally, without clubbing or cyanosis. LABORATORY DATA: CBC showed a hemoglobin of 11.9, hematocrit 36.6, platelet count 78,000, white blood cell count 12,000, sedimentation rate 60. Chemistry showed sodium 144, potassium 3.9, chloride 107, bicarbonate 29, anion gap 4, BUN 46, creatinine 0.9, glucose 122, calcium 8.3, CRP 18.3. Last evenings INR was 1.08, fibrinogen 815, D-dimer greater than 4000. I reviewed his chest x-ray as well as the report. A chest x-ray was off rotated making it difficult to comment on the left side. Both hemidiaphragms could be seen. No consolidated region. There may have been bibasilar atelectasis. Endotracheal tube is in good position. Yesterday's input and output were 3955 in and 2300 out making a positive 1650. Weight 155.3 kg. IMPRESSION: 1. Acute and chronic hypoxemic respiratory failure leading to mechanical ventilation. The etiology for the acute portion remains unclear. This is not a chronic obstructive pulmonary disease (COPD) exacerbation. No significant pneumonia process. Differential remains pulmonary edema, cardiac arrhythmia or other. Pulmonary embolism remains in the differential though he has a negative bilateral lower extremity Doppler making it less likely though not excluding it. 2. Hypotension, resolved. This is felt secondary to medications given after intubation. It was not felt to be reflective of severe sepsis as his lactic acid was only 1.7. 3. Sepsis. He is felt to have had sepsis likely from skin sores. He had a positive PCR in [place] for group B strep and now has one of two vials positive for gram positive cocci. It is not know if this is contaminant or represents a second positive culture. His fever curve has improved and his white blood cell count is marginally improved. 4. Thrombocytopenia, improving. This was felt secondary to sepsis. He is not in disseminated intravascular coagulation. HIT antibody pending. 5. Diabetes mellitus, on sliding scale insulin, also on Levemir. 6. Acute kidney injury, improving. 7. Possible scrotal cellulitis. He has a normal ultrasound. His scrotum continues to appear improved. 8. Chronic obstructive pulmonary disease (COPD). 9. Cor pulmonale per history. Repeat echocardiogram pending. 10. Tobacco use is ongoing at the time of admission. 11. Increased pulmonary secretions, likely bronchorrhea related to cessation of tobacco. 12. Deep venous thrombosis (DVT) prophylaxis, place Sequential compression devices (SCD) and thromboembolic deterrent stockings (TEDS). No medicine. 13. Stress ulcer prophylaxis with proton pump inhibitor. 14. Nutrition: Nothing by mouth. 15. Infectious disease. On Levaquin and vancomycin. RECOMMENDATIONS: 1. Continue current antibiotics pending further identification of source. 2. Will proceed to a weaning trial. 3. Agree with continuing with Solu-Medrol though likely could decrease his dosage to 20 mg IV. He has been on 20 mg prednisone for at least 1 year and I believe closer to 2 years. ADDENDUM: Mr. Spence was placed on a weaning trial initially of a pressure support of 5 with a PEEP of 8. The PEEP of 8 had been placed because of his large chest wall size. After he tolerated the wean to a pressure support of 5 over a PEEP of 8, the PEEP was decreased to 5/5. He was watched on this level for about half an hour and an arterial blood gas was drawn which was 7.4/42/69 with a measured saturation of 94% and a base excess of 0.6. This was on an FiO2 of 0.3. He has been placed on higher pressure support pending the results of this laboratory. He continued to do well and he was changed back to pressure support of 5/5 and watched again for another 20-25 minutes. His rapid shallow breathing index was in the 90s which would predict success. He was therefore extubated. As he is on bilevel therapy for his JOE and is used to that device, he was initially extubated to non-invasive mechanical ventilation set at his bilevel therapy, he was on BiPAP of 19 and a PEEP of 15. After he had done well on these settings for several hours, he was changed over to the use of device as bilevel for naps and nocturnally and changed over the 3 liters via nasal cannula which is his baseline level while awake and he is doing well. CRITICAL CARE TIME: 55 minutes not including procedure time. FLORIAN
[2017-01-06] MEDS: ALBUTEROL SULFATE 2.5 MG/0.5 ML INH NEB SOLN NEB SCH (22:52)
[2017-01-06] MEDS ORDERED: SODIUM CHLORIDE 0.9% INJ 10 ML SYR IV PRN (23:45)
[2017-01-07] MEDS: ACETAMINOPHEN TAB 650MG DOSE (2X325MG) PO PRN ×2 (00:18→09:07)
[2017-01-07] MEDS: ALBUTEROL SULFATE 2.5 MG/0.5 ML INH NEB SOLN NEB SCH (01:53)
[2017-01-07 03:09] VITALS: BP 101/50
[2017-01-07] MEDS: NYSTATIN 100,000 UNITS/GM TOPICAL PWD 15 GM TOP SCH ×3 (04:08→22:15)
[2017-01-07] MEDS: VANCOMYCIN HCL 1,000 MG, VIAL MATE ADAPTER 1 EACH in D5W 250 ML IV SCH (04:24)
[2017-01-07 05:23] LABS: MEAN CORPUSCULAR HEMOGLOBIN 29.7 pg (27.0-33.0); MEAN CORPUSCULAR HGB CONC 32.4 g/dl (32.0-36.5); MEAN CORPUSCULAR VOLUME 91.6 fl (80.0-96.0); RED CELL DISTRIBUTION WIDTH 13.5 % (11.5-14.5); WHITE BLOOD COUNT 13.5 K/mm3 (4.0-10.0)
[2017-01-07 05:40] LABS: ANION GAP 5 MEQ/L (8-16); BLOOD UREA NITROGEN 34 MG/DL (7-18); CALCIUM LEVEL 8.3 MG/DL (8.5-10.1); CARBON DIOXIDE LEVEL 33 MEQ/L (21-32); CHLORIDE LEVEL 103 MEQ/L (98-107); CREATININE FOR GFR 0.69 MG/DL (0.70-1.30); GLOMERULAR FILTRATION RATE > 60.0 (>56); GLUCOSE, FASTING 93 MG/DL (70-105); SODIUM LEVEL 141 MEQ/L (136-145)
[2017-01-07] MEDS: SODIUM CHLORIDE 0.9% INJ 10 ML SYR IV SCH ×3 (06:05→22:18)
[2017-01-07] MEDS: HumaLOG INSULIN (NovoLOG) PER UNIT SC SCH ×4 (07:30→22:13)
[2017-01-07] MEDS: TIOTROPIUM INHALER/CAPSULE (SPIRIVA) INH SCH (07:56)
[2017-01-07] MEDS: ADVAIR HFA 230/21MCG INHALER INH SCH ×2 (07:57→20:47)
[2017-01-07 08:00] VITALS: BP 124/66
[2017-01-07] MEDS: IPRATROPIUM 0.5MG/ALBUTEROL 2.5MG INH SOL UD 3ML (DUONEB)(J7620) NEB SCH ×4 (08:00→20:00)
[2017-01-07] MEDS: OMEPRAZOLE 20 MG CAP PO SCH (09:08)
[2017-01-07] MEDS: predniSONE 20 MG TAB PO SCH (09:08)
[2017-01-07] MEDS: LEVEMIR (INSULIN DETEMIR) 1 UNITS/0.01ML SC SCH ×2 (09:09→22:14)
--- NOTE | 2017-01-07 10:20 | REP ---
PORTABLE CHEST, ONE VIEW: HISTORY: Intubation. COMPARISON: 01/06/2017 A minimal increase in interstitial markings is present in the lungs consistent with chronic interstitial change. Increased density is present in the lower lobes consistent with bibasilar atelectasis or infiltrates. The cardiac silhouette is enlarged. A central line is present. IMPRESSION: 1. Bibasilar atelectasis or infiltrates unchanged compared to the previous study. 2. Cardiomegaly. Signed by Travis Faustin MD 01/07/2017 10:23 A
[2017-01-07] MEDS: traMADol 50 MG TAB PO PRN ×2 (11:04→22:17)
--- NOTE | 2017-01-07 11:30 | IPNPDOC ---
Subjective Date Seen The patient was seen on 01/07/17. Subjective Chief Complaint/HPI Patient seen and examined at the bedside states that he is feeling much better this morning and denies any complaints of any acute shortness of breath. Objective Physical Examination General Exam: Positive: Alert, Cooperative, No Acute Distress, Other (morbidly obese) Eye Exam: Positive: Conjunctiva & lids normal, Negative: Sclera icteric ENT Exam: Positive: Atraumatic, Mucous membr. moist/pink Neck Exam: Positive: Supple, Negative: Lymphadenopathy Chest Exam: Positive: Diminished, Negative: Wheezing Heart Exam: Positive: Rate Normal, Regular Rhythm, Normal S1, Normal S2, Negative: Tachycardic, Bradycardic, Gallops, Murmurs, Rubs Abdomen Exam: Positive: Soft, Negative: BS Hyperactive, BS Hypoactive, Tenderness Skin Exam: Positive: Rash (Diffuse psoriatic rash), Breakdown (Intertrigal folds with lara and some maceration of skin) Psych Exam: Positive: Oriented x 3 Assessment /Plan Plan/VTE VTE Prophylaxis Ordered?: Yes Plan Acute Respiratory Failure requiring Intubation and Mechanical Ventilation s/p Extubation on 01/05/17 Patient with possible underlying COPD? However PFT's from 2006 outpatient pulmonary records show non-specific decrease in FVC and FEV1 with an underlying history of JOE, chronic obstructive bronchitis, chronic hypoxemia and hypercarbia, with restrictive ventilatory impairment and cor pulmonale The patient will need PFT's done as an outpatient once he is back to his respiratory baseline Cont the patient on Nebs, and steroids transitioned to PO Pulmonary input appreciated Respiratory status continues to improve Streptococcus/Methicillin Sensitive Staph Bacteremia Patient noted to be positive for Streptococcus Bacteremia and Strep B positive from blood cultures, PCR drawn in [place] Repeat Blood Culture x 1 notable for Methicillin Sensitive Staph Aureus, 2nd bottle negative from 01/04/17 Repeat Blood Cultures x 2 from 01/06/17 negative Source of infection unclear, however the patient does have some erythematous skin changes from chronic underlying Psoriasis. Source possibly from Respiratory tract as well. These may also be contaminant sources given the different organisms grown and negative 2nd BC bottle from 01/04 and Repeat Blood Cultures negative x 2 from 01/06/17. The patient has been afebrile here over the last 48+ hrs Vanco changed to PO Doxycycline for 5 more days for a completion of antibiotic trial 2D ECHO pending Acute Kidney Injury, resolved s/p IVF Hydration Serum Cr back to within normal limits Leukocytosis likely 2/2 Steroids Diabetes Mellitus Continue levemir, ISS coverage Diet Advanced HTN, stable Thrombocytopenia possibly 2/2 Sepsis, resolved Platelet count WNL Doesn't appear to be 2/2 DIC as the patient's PT, PTT, and Fibrinogen levels does not suggest this Hx of JOE BiPAP settings as per pulmonary GI Prophylaxis Protonix DVT prophylaxis SCDs Dispo--We will have the patient work with physical therapy for functional optimization. Anticipate discharge in the next 24-48 hours pending clinical improvement and PT clearance. VS, I&O, 24H, Fishbone Vital Signs/I&O Vital Signs Date Time Temp Pulse Resp B/P (MAP) Pulse Ox O2 Delivery O2 Flow Rate FiO2 01/07/17 11:04 20 01/07/17 08:46 Nasal Cannula 3.0 01/07/17 08:00 98.4 98 124/66 (85) 96 01/06/17 20:00 30 I&O- Last 24 Hours up to 6 AM 01/07/17 06:00 Intake Total 2630 ml Output Total 2607 ml Balance 23 ml Laboratory Data 24H LABS Laboratory Tests 2 01/06/17 11:30: Bedside Glucose (Misc Panel) 231H 01/06/17 16:42: Bedside Glucose (Misc Panel) 314H 01/06/17 18:29: Vancomycin Level Trough 14.6 01/06/17 20:47: Bedside Glucose (Misc Panel) 271H 01/07/17 04:49: Anion Gap 5L, Glomerular Filtration Rate > 60.0, Blood Urea Nitrogen 34H, Creatinine 0.69L, Sodium Level 141, Potassium Level 4.0, Chloride Level 103, Carbon Dioxide Level 33H, Calcium Level 8.3L CBC/BMP Laboratory Tests 01/07/17 04:49 Red Blood Count 4.28 L, Mean Corpuscular Volume 91.6, Mean Corpuscular Hemoglobin 29.7, Mean Corpuscular Hemoglobin Concent 32.4, Red Cell Distribution Width 13.5, Calcium Level 8.3 L Microbiology Microbiology 01/06/17 Blood Culture - Preliminary, Resulted No growth after 24 hours . All specim... 01/06/17 Blood Culture - Preliminary, Resulted No growth after 24 hours . All specim... 01/04/17 Blood Culture - Final, Complete Staphylococcus Aureus 01/04/17 Blood Culture - Preliminary, Resulted No Growth after 48 hours. All Specime... 01/06/17 Gram Stain - Final, Resulted 01/06/17 Sputum Culture, Resulted Pending 01/04/17 Gram Stain - Final, Complete 01/04/17 Sputum Culture - Final, Complete Staphylococcus Aureus KATHE DOE MD Jan 07, 2017 11:30
[2017-01-07 12:00] VITALS: BP 128/72
[2017-01-07] MEDS: DOXYCYCLINE HYCLATE 100 MG TAB PO SCH ×2 (12:26→22:11)
[2017-01-07] MEDS: PERCOCET 5MG/325MG TAB PO PRN ×2 (12:56→18:24)
[2017-01-07 16:00] VITALS: BP 128/75
[2017-01-07 20:00] VITALS: BP 139/77
--- NOTE | 2017-01-07 20:27 | ECHO ---
DATE OF PROCEDURE: 01/04/2017 DATE OF : 1960 AGE: 56 REFERRING PROVIDER: Dr. Gal Salvador PATIENT LOCATION: Room 3209 REASON FOR THE ECHOCARDIOGRAM: Shortness of breath. 2D MEASUREMENTS: IVS: 1.5 cm LV: 4.5 cm LVPW: 1.5 cm LA: 3.7 cm Aorta: 3.3 cm IVC: 3.0 cm DOPPLER MEASUREMENTS: Peak velocity across the aortic valve: 1.4 m/s Peak velocity across the LVOT: 0.84 m/s Mitral E: 0.92, Mitral A: 1.1 with a ratio of 0.9 Maximum tricuspid valve velocity: 2.7 m/s 2D COMMENTS: 1. Moderately increased left ventricular wall thickness with normal left ventricular size and a normal global left ventricular systolic function. The estimated global left ventricular systolic ejection fraction is 60%. 2. Normal left atrium. The right atrium appeared to be mildly enlarged. The right ventricle was not well visualized. 3. The atrial septum appeared to be normal without evidence of intracardiac shunt in limited views. 4. Normal aortic root. 5. Trace to small pericardial effusion noted, no evidence of cardiac tamponade. 6. The aortic valve and the mitral valve were not well visualized but appeared to be normal. The tricuspid valve was not well visualized. The pulmonic valve and proximal pulmonary artery branches were not visualized. 7. The inferior vena cava was enlarged, central venous pressure is most likely elevated. DOPPLER: Only mild tricuspid regurgitation detected. The calculated pulmonary artery systolic pressure varies between 30-40 mmHg. Abnormal relaxation pattern was noted across the mitral valve leaflets, consistent with grade 1 left ventricular diastolic dysfunction. IMPRESSION: 1. Normal global left ventricular systolic function with probably moderate concentric left ventricular hypertrophy. 2. Mild tricuspid regurgitation with mild pulmonary hypertension. The right heart chambers were not well visualized, but the right atrium appeared to be mildly enlarged. 3. The inferior vena cava was enlarged. Central venous pressure is probably elevated. 4. Trace to small pericardial effusion, no evidence of cardiac tamponade. 5. The study was technically limited due to poor acoustic window. MTDD
[2017-01-07 21:30] VITALS: BP 133/78
[2017-01-08] MEDS: PERCOCET 5MG/325MG TAB PO PRN ×4 (03:13→21:26)
[2017-01-08] MEDS: SODIUM CHLORIDE 0.9% INJ 10 ML SYR IV SCH (05:17)
[2017-01-08 06:00] VITALS: BP 120/80
[2017-01-08 06:12] LABS: MEAN CORPUSCULAR HEMOGLOBIN 29.5 pg (27.0-33.0); MEAN CORPUSCULAR VOLUME 92.2 fl (80.0-96.0); RED CELL DISTRIBUTION WIDTH 13.5 % (11.5-14.5); WHITE BLOOD COUNT 14.6 K/mm3 (4.0-10.0)
[2017-01-08] MEDS: traMADol 50 MG TAB PO PRN ×2 (06:27→17:15)
[2017-01-08 06:32] LABS: ANION GAP 3 MEQ/L (8-16); BLOOD UREA NITROGEN 29 MG/DL (7-18); CALCIUM LEVEL 8.7 MG/DL (8.5-10.1); CARBON DIOXIDE LEVEL 34 MEQ/L (21-32); CHLORIDE LEVEL 102 MEQ/L (98-107); CREATININE FOR GFR 0.68 MG/DL (0.70-1.30); GLOMERULAR FILTRATION RATE > 60.0 (>56); GLUCOSE, FASTING 101 MG/DL (70-105); POTASSIUM SERUM 4.5 MEQ/L (3.5-5.1); SODIUM LEVEL 139 MEQ/L (136-145)
[2017-01-08] MEDS: HumaLOG INSULIN (NovoLOG) PER UNIT SC SCH ×5 (07:37→21:00)
[2017-01-08] MEDS: TIOTROPIUM INHALER/CAPSULE (SPIRIVA) INH SCH (07:46)
[2017-01-08] MEDS: ADVAIR HFA 230/21MCG INHALER INH SCH ×2 (07:46→20:33)
[2017-01-08] MEDS: IPRATROPIUM 0.5MG/ALBUTEROL 2.5MG INH SOL UD 3ML (DUONEB)(J7620) NEB SCH ×4 (07:49→19:37)
[2017-01-08 09:30] VITALS: BP 139/47
[2017-01-08] MEDS: predniSONE 10 MG TAB PO SCH (10:46)
[2017-01-08] MEDS: DOXYCYCLINE HYCLATE 100 MG TAB PO SCH ×2 (10:46→21:02)
[2017-01-08] MEDS: NYSTATIN 100,000 UNITS/GM TOPICAL PWD 15 GM TOP SCH ×2 (10:47→21:02)
[2017-01-08] MEDS: OMEPRAZOLE 20 MG CAP PO SCH (10:47)
[2017-01-08] MEDS: LEVEMIR (INSULIN DETEMIR) 1 UNITS/0.01ML SC SCH ×2 (10:47→21:03)
--- NOTE | 2017-01-08 11:25 | IPNPDOC ---
Subjective Date Seen The patient was seen on 01/08/17. Subjective Chief Complaint/HPI Patient seen and examined at the bedside. States that he is feeling well and that his respiratory status is improved. Denies any other acute complaints at this time. Objective Physical Examination General Exam: Positive: Alert, Cooperative, No Acute Distress, Other (morbidly obese) Eye Exam: Positive: Conjunctiva & lids normal, Negative: Sclera icteric ENT Exam: Positive: Atraumatic, Mucous membr. moist/pink Neck Exam: Positive: Supple, Negative: Lymphadenopathy Chest Exam: Positive: Diminished, Negative: Wheezing Heart Exam: Positive: Rate Normal, Regular Rhythm, Normal S1, Normal S2, Negative: Tachycardic, Bradycardic, Gallops, Murmurs, Rubs Abdomen Exam: Positive: Soft, Negative: BS Hyperactive, BS Hypoactive, Tenderness Skin Exam: Positive: Rash (Diffuse psoriatic rash), Breakdown (Intertrigal folds with lara and some maceration of skin) Psych Exam: Positive: Oriented x 3 Assessment /Plan Plan/VTE VTE Prophylaxis Ordered?: Yes Plan Acute Respiratory Failure requiring Intubation and Mechanical Ventilation s/p Extubation on 01/05/17 Patient with possible underlying COPD? However PFT's from 2006 outpatient pulmonary records show non-specific decrease in FVC and FEV1 with an underlying history of JOE, chronic obstructive bronchitis, chronic hypoxemia and hypercarbia, with restrictive ventilatory impairment and cor pulmonale The patient will need PFT's done as an outpatient once he is back to his respiratory baseline Cont the patient on Nebs, and steroids transitioned to PO Pulmonary input appreciated Respiratory status continues to improve Streptococcus/Methicillin Sensitive Staph Bacteremia Patient noted to be positive for Streptococcus Bacteremia and Strep B positive from blood cultures, PCR drawn in [place] Repeat Blood Culture x 1 notable for Methicillin Sensitive Staph Aureus, 2nd bottle negative from 01/04/17 Repeat Blood Cultures x 2 from 01/06/17 negative Source of infection unclear, however the patient does have some erythematous skin changes from chronic underlying Psoriasis. Source possibly from Respiratory tract as well. These may also be contaminant sources given the different organisms grown and negative 2nd BC bottle from 01/04 and Repeat Blood Cultures negative x 2 from 01/06/17. The patient has been afebrile here over since 01/05 Vanco changed to PO Doxycycline for completion of antibiotic trial 2D ECHO with no overt source of infection noted--Stage 1 DD, Normal LVEF, LVH Acute Kidney Injury, resolved s/p IVF Hydration Serum Cr back to within normal limits Leukocytosis likely 2/2 Steroids Diabetes Mellitus Continue levemir, ISS coverage Diet Advanced HTN, stable Thrombocytopenia possibly 2/2 Sepsis, resolved Platelet count WNL Doesn't appear to be 2/2 DIC as the patient's PT, PTT, and Fibrinogen levels does not suggest this Hx of JOE BiPAP settings as per pulmonary GI Prophylaxis Protonix DVT prophylaxis SCDs Dispo--Discharge pending clinical improvement and PT clearance. VS, I&O, 24H, Fishbone Vital Signs/I&O Vital Signs Date Time Temp Pulse Resp B/P (MAP) Pulse Ox O2 Delivery O2 Flow Rate FiO2 01/08/17 09:35 18 01/08/17 09:30 97.6 109 139/47 (77) 97 Nasal Cannula 3.0 01/06/17 20:00 30 I&O- Last 24 Hours up to 6 AM 01/08/17 05:59 Intake Total 1810 ml Output Total 3000 ml Balance -1190 ml Laboratory Data 24H LABS Laboratory Tests 2 01/07/17 11:31: Bedside Glucose (Misc Panel) 126H 01/07/17 20:17: Bedside Glucose (Misc Panel) 271H 01/08/17 05:58: Anion Gap 3L, Glomerular Filtration Rate > 60.0, Blood Urea Nitrogen 29H, Creatinine 0.68L, Sodium Level 139, Potassium Level 4.5, Chloride Level 102, Carbon Dioxide Level 34H, Calcium Level 8.7 CBC/BMP Laboratory Tests 01/08/17 05:58 Red Blood Count 4.52, Mean Corpuscular Volume 92.2, Mean Corpuscular Hemoglobin 29.5, Mean Corpuscular Hemoglobin Concent 32.0, Red Cell Distribution Width 13.5 , Calcium Level 8.7 Microbiology Microbiology 01/06/17 Blood Culture - Preliminary, Resulted No Growth after 48 hours. All Specime... 01/06/17 Blood Culture - Preliminary, Resulted No Growth after 48 hours. All Specime... 01/04/17 Blood Culture - Final, Complete Staphylococcus Aureus 01/04/17 Blood Culture - Preliminary, Resulted No Growth after 72 hours. All specime... 01/06/17 Gram Stain - Final, Resulted 01/06/17 Sputum Culture, Resulted Pending 01/04/17 Gram Stain - Final, Complete 01/04/17 Sputum Culture - Final, Complete Staphylococcus Aureus KATHE DOE MD Jan 08, 2017 11:24
[2017-01-08 12:43] VITALS: BP 139/47
[2017-01-08 13:30] VITALS: BP 121/67
[2017-01-08 22:00] VITALS: BP 123/72
[2017-01-09] MEDS: PERCOCET 5MG/325MG TAB PO PRN ×4 (04:18→21:18)
[2017-01-09 06:00] VITALS: BP 130/71
[2017-01-09 06:15] LABS: MEAN CORPUSCULAR HGB CONC 31.3 g/dl (32.0-36.5); MEAN CORPUSCULAR VOLUME 92.7 fl (80.0-96.0); RED CELL DISTRIBUTION WIDTH 13.3 % (11.5-14.5); WHITE BLOOD COUNT 13.7 K/mm3 (4.0-10.0)
[2017-01-09 06:39] LABS: ANION GAP 2 MEQ/L (8-16); BLOOD UREA NITROGEN 24 MG/DL (7-18); CALCIUM LEVEL 8.7 MG/DL (8.5-10.1); CARBON DIOXIDE LEVEL 35 MEQ/L (21-32); CHLORIDE LEVEL 101 MEQ/L (98-107); CREATININE FOR GFR 0.56 MG/DL (0.70-1.30); GLOMERULAR FILTRATION RATE > 60.0 (>56); GLUCOSE, FASTING 133 MG/DL (70-105); POTASSIUM SERUM 4.3 MEQ/L (3.5-5.1); SODIUM LEVEL 138 MEQ/L (136-145)
[2017-01-09] MEDS: traMADol 50 MG TAB PO PRN (06:42)
[2017-01-09] MEDS: ADVAIR HFA 230/21MCG INHALER INH SCH ×2 (07:51→19:28)
[2017-01-09] MEDS: TIOTROPIUM INHALER/CAPSULE (SPIRIVA) INH SCH (07:51)
[2017-01-09] MEDS: IPRATROPIUM 0.5MG/ALBUTEROL 2.5MG INH SOL UD 3ML (DUONEB)(J7620) NEB SCH ×4 (07:53→20:00)
[2017-01-09] MEDS: LEVEMIR (INSULIN DETEMIR) 1 UNITS/0.01ML SC SCH ×2 (08:11→21:45)
[2017-01-09] MEDS: predniSONE 10 MG TAB PO SCH (08:12)
[2017-01-09] MEDS: HumaLOG INSULIN (NovoLOG) PER UNIT SC SCH ×4 (08:12→21:00)
[2017-01-09] MEDS: BACTRIM 160MG/800MG DS TAB PO SCH ×2 (08:18→21:18)
[2017-01-09] MEDS: NYSTATIN 100,000 UNITS/GM TOPICAL PWD 15 GM TOP SCH ×2 (08:18→21:46)
--- NOTE | 2017-01-09 11:32 | IPNPDOC ---
Subjective Date Seen The patient was seen on 01/09/17. Subjective Chief Complaint/HPI Patient seen and examined at the bedside. States that he does have some chronic right shoulder pain which she is feeling at the moment, but otherwise denies any acute complaints and states that his respiratory status has improved and he is eager to work with physical therapy to improve his functional status. Objective Physical Examination General Exam: Positive: Alert, Cooperative, No Acute Distress, Other (morbidly obese) Eye Exam: Positive: Conjunctiva & lids normal, Negative: Sclera icteric ENT Exam: Positive: Atraumatic, Mucous membr. moist/pink Neck Exam: Negative: Lymphadenopathy Chest Exam: Positive: Diminished, Negative: Wheezing Heart Exam: Positive: Rate Normal, Regular Rhythm, Normal S1, Normal S2, Negative: Tachycardic, Bradycardic, Gallops, Murmurs, Rubs Abdomen Exam: Positive: Soft, Negative: BS Hyperactive, BS Hypoactive, Tenderness Skin Exam: Positive: Rash (Diffuse psoriatic rash), Breakdown (Intertrigal folds with lara and some maceration of skin) Psych Exam: Positive: Oriented x 3 Assessment /Plan Plan/VTE VTE Prophylaxis Ordered?: Yes Plan Acute Respiratory Failure requiring Intubation and Mechanical Ventilation s/p Extubation on 01/05/17 Patient with possible underlying COPD? However PFT's from 2006 outpatient pulmonary records show non-specific decrease in FVC and FEV1 with an underlying history of JOE, chronic obstructive bronchitis, chronic hypoxemia and hypercarbia, with restrictive ventilatory impairment and cor pulmonale The patient will need PFT's done as an outpatient once he is back to his respiratory baseline Cont the patient on Nebs, and steroids transitioned to PO Pulmonary input appreciated Respiratory status continues to improve Streptococcus/Methicillin Sensitive Staph Bacteremia Patient noted to be positive for Streptococcus Bacteremia and Strep B positive from blood cultures, PCR drawn in [place] Repeat Blood Culture x 1 notable for Methicillin Sensitive Staph Aureus, 2nd bottle negative from 01/04/17 Repeat Blood Cultures x 2 from 01/06/17 negative Source of infection unclear, however the patient does have some erythematous skin changes from chronic underlying Psoriasis. Source possibly from Respiratory tract as well. These may also be contaminant sources given the different organisms grown and negative 2nd BC bottle from 01/04 and Repeat Blood Cultures negative x 2 from 01/06/17. The patient has been afebrile here over since 7/12 Vanco changed to PO Bactrim for completion of antibiotic trial 2D ECHO with no overt source of infection noted--Stage 1 DD, Normal LVEF, LVH Acute Kidney Injury, resolved s/p IVF Hydration Serum Cr back to within normal limits Leukocytosis likely 2/2 Steroids Diabetes Mellitus Continue levemir, ISS coverage Diet Advanced HTN, stable Thrombocytopenia possibly 2/2 Sepsis, resolved Platelet count WNL Doesn't appear to be 2/2 DIC as the patient's PT, PTT, and Fibrinogen levels does not suggest this Hx of JOE BiPAP settings as per pulmonary GI Prophylaxis Protonix DVT prophylaxis SCDs Dispo--Discharge pending clinical improvement and PT clearance. VS, I&O, 24H, Fishbone Vital Signs/I&O Vital Signs Date Time Temp Pulse Resp B/P (MAP) Pulse Ox O2 Delivery O2 Flow Rate FiO2 01/09/17 08:14 18 01/09/17 06:00 97.5 93 130/71 (90) 96 Nasal Cannula 2.0 01/08/17 12:43 30 I&O- Last 24 Hours up to 6 AM 01/09/17 06:00 Intake Total 1080 ml Output Total 2220 ml Balance -1140 ml Laboratory Data 24H LABS Laboratory Tests 2 01/08/17 11:58: Bedside Glucose (Misc Panel) 156H 01/08/17 16:55: Bedside Glucose (Misc Panel) 153H 01/08/17 21:11: Bedside Glucose (Misc Panel) 208H 01/09/17 05:45: Anion Gap 2L, Glomerular Filtration Rate > 60.0, Blood Urea Nitrogen 24H, Creatinine 0.56L, Sodium Level 138, Potassium Level 4.3, Chloride Level 101, Carbon Dioxide Level 35H, Calcium Level 8.7 CBC/BMP Laboratory Tests 01/09/17 05:45 Red Blood Count 4.41, Mean Corpuscular Volume 92.7, Mean Corpuscular Hemoglobin 29.0, Mean Corpuscular Hemoglobin Concent 31.3 L, Red Cell Distribution Width 13.3, Calcium Level 8.7 Microbiology Microbiology 01/06/17 Blood Culture - Preliminary, Resulted No Growth after 72 hours. All specime... 01/06/17 Blood Culture - Preliminary, Resulted No Growth after 72 hours. All specime... 01/04/17 Blood Culture - Final, Complete Staphylococcus Aureus 01/04/17 Blood Culture - Preliminary, Resulted No Growth after 72 hours. All specime... 01/06/17 Gram Stain - Final, Complete 01/06/17 Sputum Culture - Final, Complete Staphylococcus Aureus Strep Agalactiae Group B Klebsiella Oxytoca 01/04/17 Gram Stain - Final, Complete 01/04/17 Sputum Culture - Final, Complete Staphylococcus Aureus KATHE DOE MD Jan 09, 2017 11:32
[2017-01-09 14:00] VITALS: BP 133/74
[2017-01-09] MEDS: MOM 30ML SUSPENSION UDC PO PRN (17:57)
[2017-01-09 22:00] VITALS: BP 131/62
[2017-01-10] MEDS: traMADol 50 MG TAB PO PRN (02:02)
[2017-01-10] MEDS: PERCOCET 5MG/325MG TAB PO PRN ×3 (05:44→21:50)
[2017-01-10 06:00] VITALS: BP 129/60
[2017-01-10] MEDS: HumaLOG INSULIN (NovoLOG) PER UNIT SC SCH ×4 (07:30→21:00)
[2017-01-10] MEDS: IPRATROPIUM 0.5MG/ALBUTEROL 2.5MG INH SOL UD 3ML (DUONEB)(J7620) NEB SCH ×4 (08:00→20:00)
[2017-01-10] MEDS: TIOTROPIUM INHALER/CAPSULE (SPIRIVA) INH SCH (08:28)
[2017-01-10] MEDS: ADVAIR HFA 230/21MCG INHALER INH SCH ×2 (08:29→20:15)
[2017-01-10] MEDS: BACTRIM 160MG/800MG DS TAB PO SCH ×2 (08:48→21:50)
[2017-01-10] MEDS: MOM 30ML SUSPENSION UDC PO PRN (08:48)
[2017-01-10] MEDS: predniSONE 20 MG TAB PO SCH (08:48)
[2017-01-10] MEDS: NYSTATIN 100,000 UNITS/GM TOPICAL PWD 15 GM TOP SCH ×2 (08:49→21:50)
[2017-01-10] MEDS: LEVEMIR (INSULIN DETEMIR) 1 UNITS/0.01ML SC SCH ×2 (08:49→22:26)
[2017-01-10 14:00] VITALS: BP 115/58
--- NOTE | 2017-01-10 14:41 | IPNPDOC ---
Subjective Date Seen The patient was seen on 01/10/17. Subjective Chief Complaint/HPI Patient seen and examined at the bedside. States that he is feeling better, but remains weak generally. States that he had a difficult time working with physical therapy due to generalized deconditioning. Denies any acute complaints at this time. Objective Physical Examination General Exam: Positive: Alert, Cooperative, No Acute Distress, Other (morbidly obese) Eye Exam: Positive: Conjunctiva & lids normal, Negative: Sclera icteric ENT Exam: Positive: Atraumatic, Mucous membr. moist/pink Neck Exam: Negative: Lymphadenopathy Chest Exam: Positive: Diminished, Negative: Wheezing Heart Exam: Positive: Rate Normal, Regular Rhythm, Normal S1, Normal S2, Negative: Tachycardic, Bradycardic, Gallops, Murmurs, Rubs Abdomen Exam: Positive: Soft, Negative: BS Hyperactive, BS Hypoactive, Tenderness Skin Exam: Positive: Rash (Diffuse psoriatic rash), Breakdown (Intertrigal folds with lara and some maceration of skin) Psych Exam: Positive: Oriented x 3 Assessment /Plan Plan/VTE VTE Prophylaxis Ordered?: Yes Plan Acute Respiratory Failure requiring Intubation and Mechanical Ventilation s/p Extubation on 01/05/17 Patient with possible underlying COPD? However PFT's from 2006 outpatient pulmonary records show non-specific decrease in FVC and FEV1 with an underlying history of JOE, chronic obstructive bronchitis, chronic hypoxemia and hypercarbia, with restrictive ventilatory impairment and cor pulmonale The patient will need PFT's done as an outpatient once he is back to his respiratory baseline Cont the patient on Nebs, and steroids transitioned to PO Pulmonary input appreciated Respiratory status back to baseline Streptococcus/Methicillin Sensitive Staph Bacteremia Patient noted to be positive for Streptococcus Bacteremia and Strep B positive from blood cultures, PCR drawn in [place] Repeat Blood Culture x 1 notable for Methicillin Sensitive Staph Aureus, 2nd bottle negative from 01/04/17 Repeat Blood Cultures x 2 from 01/06/17 negative Source of infection unclear, however the patient does have some erythematous skin changes from chronic underlying Psoriasis. Source possibly from Respiratory tract as well. These may also be contaminant sources given the different organisms grown and negative 2nd BC bottle from 01/04 and Repeat Blood Cultures negative x 2 from 01/06/17. The patient has been afebrile here over since 01/05 Vanco changed to PO Bactrim for completion of antibiotic trial 2D ECHO with no overt source of infection noted--Stage 1 DD, Normal LVEF, LVH Stage 1 Diastolic CHF 2D ECHO noted above Patient does appear to have some anasarca Net fluid balance here has been negative 250 cc's since admission Will give him a dose of Lasix this afternoon and monitor response. Acute Kidney Injury, resolved s/p IVF Hydration Serum Cr back to within normal limits Leukocytosis likely 2/2 Steroids Diabetes Mellitus Continue levemir, ISS coverage Diet Advanced HTN, stable Thrombocytopenia possibly 2/2 Sepsis, resolved Platelet count WNL Doesn't appear to be 2/2 DIC as the patient's PT, PTT, and Fibrinogen levels does not suggest this Hx of JOE BiPAP settings as per pulmonary GI Prophylaxis Protonix DVT prophylaxis SCDs Dispo--Discharge pending clinical improvement and PT clearance. VS, I&O, 24H, Fishbone Vital Signs/I&O Vital Signs Date Time Temp Pulse Resp B/P (MAP) Pulse Ox O2 Delivery O2 Flow Rate FiO2 01/10/17 13:33 18 01/10/17 10:26 Nasal Cannula 3.0 01/10/17 06:00 96.8 97 129/60 (83) 93 01/08/17 12:43 30 I&O- Last 24 Hours up to 6 AM 01/10/17 06:00 Intake Total 2060 ml Output Total 2450 ml Balance -390 ml Laboratory Data 24H LABS Laboratory Tests 2 01/09/17 16:58: Bedside Glucose (Misc Panel) 332H 01/10/17 06:09: Bedside Glucose (Misc Panel) 111H 01/10/17 12:51: Bedside Glucose (Misc Panel) 212H Microbiology Microbiology 01/06/17 Blood Culture - Preliminary, Resulted No Growth after 72 hours. All specime... 01/06/17 Blood Culture - Preliminary, Resulted No Growth after 72 hours. All specime... 01/04/17 Blood Culture - Final, Complete Staphylococcus Aureus 01/04/17 Blood Culture - Final, Complete NO GROWTH AFTER 5 DAYS 01/06/17 Gram Stain - Final, Complete 01/06/17 Sputum Culture - Final, Complete Staphylococcus Aureus Strep Agalactiae Group B Klebsiella Oxytoca 01/04/17 Gram Stain - Final, Complete 01/04/17 Sputum Culture - Final, Complete Staphylococcus Aureus KATHE DOE MD Jan 10, 2017 14:41
[2017-01-10] MEDS ORDERED: FUROSEMIDE 40 MG/4 ML VIAL (J1940) IV ONE (14:45)
[2017-01-10] MEDS ORDERED: FUROSEMIDE 40 MG TAB PO ONE (15:00)
[2017-01-10 22:00] VITALS: BP 145/59
[2017-01-11] MEDS: PERCOCET 5MG/325MG TAB PO PRN ×3 (05:54→20:38)
[2017-01-11 06:00] VITALS: BP 142/63
[2017-01-11 06:26] LABS: MEAN CORPUSCULAR HEMOGLOBIN 29.6 pg (27.0-33.0); MEAN CORPUSCULAR HGB CONC 32.6 g/dl (32.0-36.5); MEAN CORPUSCULAR VOLUME 90.8 fl (80.0-96.0); RED CELL DISTRIBUTION WIDTH 13.3 % (11.5-14.5); WHITE BLOOD COUNT 13.4 K/mm3 (4.0-10.0)
[2017-01-11 06:40] LABS: ANION GAP 5 MEQ/L (8-16); BLOOD UREA NITROGEN 22 MG/DL (7-18); CALCIUM LEVEL 9.1 MG/DL (8.5-10.1); CARBON DIOXIDE LEVEL 33 MEQ/L (21-32); CHLORIDE LEVEL 96 MEQ/L (98-107); CREATININE FOR GFR 0.61 MG/DL (0.70-1.30); GLOMERULAR FILTRATION RATE > 60.0 (>56); GLUCOSE, FASTING 52 MG/DL (70-105); POTASSIUM SERUM 4.8 MEQ/L (3.5-5.1); SODIUM LEVEL 134 MEQ/L (136-145)
[2017-01-11] MEDS: TIOTROPIUM INHALER/CAPSULE (SPIRIVA) INH SCH (07:07)
[2017-01-11] MEDS: ADVAIR HFA 230/21MCG INHALER INH SCH ×2 (07:07→19:37)
[2017-01-11] MEDS: IPRATROPIUM 0.5MG/ALBUTEROL 2.5MG INH SOL UD 3ML (DUONEB)(J7620) NEB SCH ×4 (07:07→20:00)
[2017-01-11] MEDS: HumaLOG INSULIN (NovoLOG) PER UNIT SC SCH ×4 (07:30→20:39)
[2017-01-11] MEDS ORDERED: MAGNESIUM CITRATE 300 ML BTL PO ONE (08:00)
[2017-01-11] MEDS: BACTRIM 160MG/800MG DS TAB PO SCH ×2 (08:17→20:38)
[2017-01-11] MEDS: predniSONE 20 MG TAB PO SCH (08:17)
[2017-01-11] MEDS: LEVEMIR (INSULIN DETEMIR) 1 UNITS/0.01ML SC SCH ×2 (08:18→20:38)
[2017-01-11] MEDS: NYSTATIN 100,000 UNITS/GM TOPICAL PWD 15 GM TOP SCH ×2 (08:18→20:39)
--- NOTE | 2017-01-11 09:08 | IPNPDOC ---
Subjective Date Seen The patient was seen on 01/11/17. Subjective Chief Complaint/HPI Patient seen and examined at the bedside. States that he is feeling better and notes that he will try to work with physical therapy today. Denies any acute complaints at this time. No overnight events noted from nursing staff. Objective Physical Examination General Exam: Positive: Alert, Cooperative, No Acute Distress, Other (morbidly obese) Eye Exam: Positive: Conjunctiva & lids normal, Negative: Sclera icteric ENT Exam: Positive: Atraumatic, Mucous membr. moist/pink Neck Exam: Negative: Lymphadenopathy Chest Exam: Positive: Diminished, Negative: Wheezing Heart Exam: Positive: Rate Normal, Regular Rhythm, Normal S1, Normal S2, Negative: Tachycardic, Bradycardic, Gallops, Murmurs, Rubs Abdomen Exam: Positive: Soft, Negative: BS Hyperactive, BS Hypoactive, Tenderness Extremity Exam: Positive: Other (2+ pitting edema in the lower extremities B/L) Skin Exam: Positive: Rash (Diffuse psoriatic rash), Breakdown (Intertrigal folds with lara and some maceration of skin) Psych Exam: Positive: Oriented x 3 Assessment /Plan Plan/VTE VTE Prophylaxis Ordered?: Yes Plan Acute Respiratory Failure requiring Intubation and Mechanical Ventilation s/p Extubation on 01/05/17 Patient with possible underlying COPD? However PFT's from 2005 outpatient pulmonary records show non-specific decrease in FVC and FEV1 with an underlying history of JOE, chronic obstructive bronchitis, chronic hypoxemia and hypercarbia, with restrictive ventilatory impairment and cor pulmonale The patient will need PFT's done as an outpatient once he is back to his respiratory baseline Cont the patient on Nebs, and steroids transitioned to PO Pulmonary input appreciated Respiratory status back to baseline Streptococcus/Methicillin Sensitive Staph Bacteremia Patient noted to be positive for Streptococcus Bacteremia and Strep B positive from blood cultures, PCR drawn in [place] Repeat Blood Culture x 1 notable for Methicillin Sensitive Staph Aureus, 2nd bottle negative from 01/04/17 Repeat Blood Cultures x 2 from 01/06/17 negative Source of infection unclear, however the patient does have some erythematous skin changes from chronic underlying Psoriasis. Source possibly from Respiratory tract as well. These may also be contaminant sources given the different organisms grown and negative 2nd BC bottle from 01/04 and Repeat Blood Cultures negative x 2 from 01/06/17. The patient has been afebrile here over since 01/05 2D ECHO with no overt source of infection noted--Stage 1 DD, Normal LVEF, LVH s/p completion of antibiotic trial with vancomycin initially and then transitioned to bactrim. Stage 1 Diastolic CHF 2D ECHO noted above Patient does appear to have some anasarca Started on Lasix 40mg daily--has been diuresing well and maintaining a negative fluid balance. Acute Kidney Injury, resolved s/p IVF Hydration Serum Cr back to within normal limits Leukocytosis likely 2/2 Steroids Diabetes Mellitus Continue levemir, ISS coverage Diet Advanced HTN, stable Thrombocytopenia possibly 2/2 Sepsis, resolved Platelet count WNL Doesn't appear to be 2/2 DIC as the patient's PT, PTT, and Fibrinogen levels does not suggest this Hx of JOE BiPAP settings as per pulmonary GI Prophylaxis Protonix DVT prophylaxis SCDs Dispo--pending functional optimization, patient may need STR. Will follow up with PT recommendations. VS, I&O, 24H, Fishbone Vital Signs/I&O Vital Signs Date Time Temp Pulse Resp B/P (MAP) Pulse Ox O2 Delivery O2 Flow Rate FiO2 01/11/17 06:34 16 01/11/17 06:00 97.0 98 142/63 (89) 97 NIPPV (BIPAP/CPAP) 2.0 01/08/17 12:43 30 I&O- Last 24 Hours up to 6 AM 01/11/17 06:00 Intake Total 1560 ml Output Total 2525 ml Balance -965 ml Laboratory Data 24H LABS Laboratory Tests 2 01/10/17 12:51: Bedside Glucose (Misc Panel) 212H 01/10/17 16:34: Bedside Glucose (Misc Panel) 304H 01/10/17 21:06: Bedside Glucose (Misc Panel) 163H 01/11/17 05:58: Anion Gap 5L, Glomerular Filtration Rate > 60.0, Blood Urea Nitrogen 22H, Creatinine 0.61L, Sodium Level 134L, Potassium Level 4.8, Chloride Level 96L, Carbon Dioxide Level 33H, Calcium Level 9.1 CBC/BMP Laboratory Tests 01/11/17 05:58 Red Blood Count 4.85, Mean Corpuscular Volume 90.8, Mean Corpuscular Hemoglobin 29.6, Mean Corpuscular Hemoglobin Concent 32.6, Red Cell Distribution Width 13.3 , Calcium Level 9.1 Microbiology Microbiology 01/06/17 Blood Culture - Final, Complete NO GROWTH AFTER 5 DAYS 01/06/17 Blood Culture - Final, Complete NO GROWTH AFTER 5 DAYS 01/04/17 Blood Culture - Final, Complete Staphylococcus Aureus 01/04/17 Blood Culture - Final, Complete NO GROWTH AFTER 5 DAYS 01/06/17 Gram Stain - Final, Complete 01/06/17 Sputum Culture - Final, Complete Staphylococcus Aureus Strep Agalactiae Group B Klebsiella Oxytoca 01/04/17 Gram Stain - Final, Complete 01/04/17 Sputum Culture - Final, Complete Staphylococcus Aureus KATHE DOE MD Jan 11, 2017 09:08
[2017-01-11] MEDS: FUROSEMIDE 40 MG TAB PO SCH (12:09)
[2017-01-11 14:00] VITALS: BP 128/71
[2017-01-11 22:00] VITALS: BP 131/81
[2017-01-12 06:00] VITALS: BP 128/72
[2017-01-12] MEDS: PERCOCET 5MG/325MG TAB PO PRN ×3 (06:09→20:18)
[2017-01-12] MEDS: TIOTROPIUM INHALER/CAPSULE (SPIRIVA) INH SCH (07:23)
[2017-01-12] MEDS: ADVAIR HFA 230/21MCG INHALER INH SCH ×2 (07:23→19:40)
[2017-01-12] MEDS: IPRATROPIUM 0.5MG/ALBUTEROL 2.5MG INH SOL UD 3ML (DUONEB)(J7620) NEB SCH ×4 (07:23→19:41)
[2017-01-12] MEDS: HumaLOG INSULIN (NovoLOG) PER UNIT SC SCH ×4 (07:30→20:19)
[2017-01-12 08:26] LABS: MEAN CORPUSCULAR HEMOGLOBIN 29.8 pg (27.0-33.0); MEAN CORPUSCULAR HGB CONC 32.7 g/dl (32.0-36.5); MEAN CORPUSCULAR VOLUME 91.3 fl (80.0-96.0); RED CELL DISTRIBUTION WIDTH 13.2 % (11.5-14.5); WHITE BLOOD COUNT 13.7 K/mm3 (4.0-10.0)
[2017-01-12 08:48] LABS: ANION GAP 4 MEQ/L (8-16); BLOOD UREA NITROGEN 22 MG/DL (7-18); CALCIUM LEVEL 8.9 MG/DL (8.5-10.1); CARBON DIOXIDE LEVEL 37 MEQ/L (21-32); CHLORIDE LEVEL 94 MEQ/L (98-107); CREATININE FOR GFR 0.82 MG/DL (0.70-1.30); GLOMERULAR FILTRATION RATE > 60.0 (>56); GLUCOSE, FASTING 170 MG/DL (70-105); POTASSIUM SERUM 4.6 MEQ/L (3.5-5.1); SODIUM LEVEL 135 MEQ/L (136-145)
[2017-01-12] MEDS: NYSTATIN 100,000 UNITS/GM TOPICAL PWD 15 GM TOP SCH ×2 (09:00→20:20)
[2017-01-12] MEDS: LEVEMIR (INSULIN DETEMIR) 1 UNITS/0.01ML SC SCH ×2 (09:08→20:19)
[2017-01-12] MEDS: BACTRIM 160MG/800MG DS TAB PO SCH ×2 (09:08→20:18)
[2017-01-12] MEDS: predniSONE 5 MG TAB PO SCH (09:08)
[2017-01-12] MEDS: FUROSEMIDE 40 MG TAB PO SCH (09:08)
[2017-01-12] MEDS ORDERED: FLEET ENEMA PR PRN (09:15)
--- NOTE | 2017-01-12 10:20 | IPNPDOC ---
Subjective Date Seen The patient was seen on 01/12/17. Subjective Chief Complaint/HPI Patient seen and examined at the bedside this morning. States that he is feeling well and denies any acute overnight events are complaints at this time. Objective Physical Examination General Exam: Positive: Alert, Cooperative, No Acute Distress, Other (morbidly obese) Eye Exam: Positive: Conjunctiva & lids normal, Negative: Sclera icteric ENT Exam: Positive: Atraumatic, Mucous membr. moist/pink Neck Exam: Negative: Lymphadenopathy Chest Exam: Positive: Diminished, Negative: Wheezing Heart Exam: Positive: Rate Normal, Regular Rhythm, Normal S1, Normal S2, Negative: Tachycardic, Bradycardic, Gallops, Murmurs, Rubs Abdomen Exam: Positive: Soft, Negative: BS Hyperactive, BS Hypoactive, Tenderness Extremity Exam: Positive: Other (2+ pitting edema in the lower extremities B/L) Skin Exam: Positive: Rash (Diffuse psoriatic rash), Breakdown (Intertrigal folds with lara and some maceration of skin) Psych Exam: Positive: Oriented x 3 Assessment /Plan Plan/VTE VTE Prophylaxis Ordered?: Yes Plan Acute Respiratory Failure requiring Intubation and Mechanical Ventilation s/p Extubation on 01/05/17 Patient with possible underlying COPD? However PFT's from 2006 outpatient pulmonary records show non-specific decrease in FVC and FEV1 with an underlying history of JOE, chronic obstructive bronchitis, chronic hypoxemia and hypercarbia, with restrictive ventilatory impairment and cor pulmonale The patient will need PFT's done as an outpatient once he is back to his respiratory baseline Cont the patient on Nebs, and steroids transitioned to PO Pulmonary input appreciated Respiratory status back to baseline Streptococcus/Methicillin Sensitive Staph Bacteremia Patient noted to be positive for Streptococcus Bacteremia and Strep B positive from blood cultures, PCR drawn in [place] Repeat Blood Culture x 1 notable for Methicillin Sensitive Staph Aureus, 2nd bottle negative from 01/04/17 Repeat Blood Cultures x 2 from 01/06/17 negative Source of infection unclear, however the patient does have some erythematous skin changes from chronic underlying Psoriasis. Source possibly from Respiratory tract as well. These may also be contaminant sources given the different organisms grown and negative 2nd BC bottle from 01/04 and Repeat Blood Cultures negative x 2 from 01/06/17. The patient has been afebrile here over since 01/05 2D ECHO with no overt source of infection noted--Stage 1 DD, Normal LVEF, LVH s/p completion of antibiotic trial with vancomycin initially and then transitioned to bactrim. Stage 1 Diastolic CHF 2D ECHO noted above Patient does appear to have some anasarca--improving Started on Lasix 40mg daily--has been diuresing well and maintaining a negative fluid balance. Acute Kidney Injury, resolved s/p IVF Hydration Serum Cr back to within normal limits Leukocytosis likely 2/2 Steroids Diabetes Mellitus Continue levemir, ISS coverage Diet Advanced HTN, stable Thrombocytopenia possibly 2/2 Sepsis, resolved Platelet count WNL Doesn't appear to be 2/2 DIC as the patient's PT, PTT, and Fibrinogen levels does not suggest this Hx of JOE BiPAP settings as per pulmonary GI Prophylaxis Protonix DVT prophylaxis SCDs Dispo--pending functional optimization. Will follow up with PT recommendations. VS, I&O, 24H, Fishbone Vital Signs/I&O Vital Signs Date Time Temp Pulse Resp B/P (MAP) Pulse Ox O2 Delivery O2 Flow Rate FiO2 01/12/17 06:41 16 01/12/17 06:00 99 128/72 (90) 98 NIPPV (BIPAP/CPAP) 2.0 01/11/17 22:00 97.0 01/08/17 12:43 30 I&O- Last 24 Hours up to 6 AM 01/12/17 06:00 Intake Total 1200 ml Output Total 2000 ml Balance -800 ml Laboratory Data 24H LABS Laboratory Tests 2 01/11/17 12:04: Bedside Glucose (Misc Panel) 172H 01/11/17 16:53: Bedside Glucose (Misc Panel) 251H 01/11/17 20:17: Bedside Glucose (Misc Panel) 290H 01/12/17 06:01: Bedside Glucose (Misc Panel) 64L 01/12/17 08:10: Anion Gap 4L, Glomerular Filtration Rate > 60.0, Blood Urea Nitrogen 22H, Creatinine 0.82, Sodium Level 135L, Potassium Level 4.6, Chloride Level 94L, Carbon Dioxide Level 37H, Calcium Level 8.9 CBC/BMP Laboratory Tests 01/12/17 08:10 Red Blood Count 4.40, Mean Corpuscular Volume 91.3, Mean Corpuscular Hemoglobin 29.8, Mean Corpuscular Hemoglobin Concent 32.7, Red Cell Distribution Width 13.2 , Calcium Level 8.9 Microbiology Microbiology 01/06/17 Blood Culture - Final, Complete NO GROWTH AFTER 5 DAYS 01/06/17 Blood Culture - Final, Complete NO GROWTH AFTER 5 DAYS 01/04/17 Blood Culture - Final, Complete Staphylococcus Aureus 01/04/17 Blood Culture - Final, Complete NO GROWTH AFTER 5 DAYS 01/06/17 Gram Stain - Final, Complete 01/06/17 Sputum Culture - Final, Complete Staphylococcus Aureus Strep Agalactiae Group B Klebsiella Oxytoca 01/04/17 Gram Stain - Final, Complete 01/04/17 Sputum Culture - Final, Complete Staphylococcus Aureus KATHE DOE MD Jan 12, 2017 10:19
[2017-01-12 14:00] VITALS: BP 144/68
[2017-01-12] MEDS: MOM 30ML SUSPENSION UDC PO PRN ×2 (14:59→22:15)
[2017-01-12] MEDS: ANALGESIC BALM CRM 120 GM TOP SCH (20:18)
[2017-01-12 22:00] VITALS: BP 127/64
[2017-01-13] MEDS: PERCOCET 5MG/325MG TAB PO PRN ×2 (02:49→08:48)
[2017-01-13 06:00] VITALS: BP 132/64
[2017-01-13 06:09] LABS: MEAN CORPUSCULAR HEMOGLOBIN 29.3 pg (27.0-33.0); MEAN CORPUSCULAR HGB CONC 32.1 g/dl (32.0-36.5); MEAN CORPUSCULAR VOLUME 91.3 fl (80.0-96.0); RED CELL DISTRIBUTION WIDTH 13.2 % (11.5-14.5); WHITE BLOOD COUNT 14.4 K/mm3 (4.0-10.0)
[2017-01-13] MEDS: TIOTROPIUM INHALER/CAPSULE (SPIRIVA) INH SCH (07:13)
[2017-01-13] MEDS: ADVAIR HFA 230/21MCG INHALER INH SCH (07:13)
[2017-01-13] MEDS: IPRATROPIUM 0.5MG/ALBUTEROL 2.5MG INH SOL UD 3ML (DUONEB)(J7620) NEB SCH ×2 (07:15→11:50)
[2017-01-13 07:18] LABS: ANION GAP 2 MEQ/L (8-16); BLOOD UREA NITROGEN 19 MG/DL (7-18); CALCIUM LEVEL 8.7 MG/DL (8.5-10.1); CARBON DIOXIDE LEVEL 37 MEQ/L (21-32); CHLORIDE LEVEL 97 MEQ/L (98-107); CREATININE FOR GFR 0.66 MG/DL (0.70-1.30); GLOMERULAR FILTRATION RATE > 60.0 (>56); POTASSIUM SERUM 4.9 MEQ/L (3.5-5.1); SODIUM LEVEL 136 MEQ/L (136-145)
[2017-01-13 07:22] LABS: GLUCOSE, FASTING 36 MG/DL (70-105)
[2017-01-13] MEDS: HumaLOG INSULIN (NovoLOG) PER UNIT SC SCH ×2 (07:40→11:59)
[2017-01-13] MEDS ORDERED: MAGNESIUM CITRATE 300 ML BTL PO ONE (08:15)
[2017-01-13] MEDS: ANALGESIC BALM CRM 120 GM TOP SCH (08:46)
[2017-01-13] MEDS: LEVEMIR (INSULIN DETEMIR) 1 UNITS/0.01ML SC SCH (08:46)
[2017-01-13] MEDS: NYSTATIN 100,000 UNITS/GM TOPICAL PWD 15 GM TOP SCH (08:47)
[2017-01-13] MEDS: predniSONE 5 MG TAB PO SCH (08:47)
[2017-01-13] MEDS: FUROSEMIDE 40 MG TAB PO SCH (08:47)
[2017-01-13] MEDS ORDERED: MOM 30ML SUSPENSION UDC PO PRN (10:15)
[2017-01-13] MEDS ORDERED: INSUDET SC (10:38)
[2017-01-13] MEDS ORDERED: ADVA230A INH (10:38)
[2017-01-13] MEDS ORDERED: FURO40TA2 PO (10:38)
--- NOTE | 2017-01-13 14:19 | DS.PDOC ---
Discharge Summary General Date of Admission Jan 04, 2017 at 00:46 Date of Discharge 01/13/17 Specialist/Consultants Involve PCP: Erica Hudson Discharge Summary PROCEDURES PERFORMED DURING STAY: None. ADMITTING DIAGNOSES: 1. . Acute hypoxic and hypercarbic respiratory failure requiring intubation and mechanical ventilation 2. . Community Acquired pneumonia 3. . Acute kidney injury 4. Diabetes mellitus 5. MSSA Bacteremia likely Contaminant source DISCHARGE DIAGNOSES: 1. . Acute hypoxic and hypercarbic respiratory failure requiring intubation and mechanical ventilation 2. . Community Acquired pneumonia 3. . Acute kidney injury 4. Diabetes mellitus 5. MSSA Bacteremia likely Contaminant source COMPLICATIONS/CHIEF COMPLAINT: Respiratory Failure. HISTORY OF PRESENT ILLNESS: . 56-year-old male admitted with a PMH of morbid obesity, HTN, DM2, COPD-steroid dependent, chronic hypoxic respiratory failure on 3L home o2, JOE on CPAP, tobacco abuse, neuropathy, psoriasis, scrotal cyst, L arm weakness secondary brachial plexus injury who was transferred from [facility] for [facility] with acute hypercapnic respiratory failure requiring intubation and mechanical ventilation and also on vasopressor therapy presented to [facility] for further evaluation and management. The patient's history was limited given his presentation. During hospitalization, a pulmonary consult was placed. The patient was continued on IV antibiotics and IV steroids. His respiratory status continued to improve and the patient was subsequently extubated on 01/05/17. Once the patient was extubated he was continued on BiPAP therapy as per pulmonary recommendations. The patient subsequently began to feel much better and his respiratory status returned back to its baseline. IV antibiotics were transitioned from IV to by mouth and he was started on a prednisone taper. He has been continued on prednisone 15 milligrams daily at this time, which he has been taking at home. Also of note the patient's acute kidney injury resolved and his renal function returned back to within normal limits following IV fluid hydration. A 2-D echocardiogram was ordered here and revealed stage I diastolic dysfunction. The patient was started on a standing dose of Lasix 40 mg daily. The patient's volume status has markedly improved following diuresis, and his fluid balance here has been approximately negative 2 L during his hospitalization stay. Also of note, the patient was noted to have 1 bottle positive for MSSA bacteremia here, however repeat cultures revealed negative findings. The patient has since remained afebrile with no acute signs or symptoms of active infection. This was likely deemed a contaminant however, the patient did complete an antibiotic trial of vancomycin which was subsequently transitioned to by mouth Bactrim for this. Lastly, the patient's basal insulin has been down titrated to 20 units of Levemir twice a day as his blood sugar levels have dropped low, which I suspect is secondary to the patient's lack of appetite in the hospital. I have asked the patient to continue with Levemir 20 units twice a day, and up titrate this dose based on his blood sugar readings at home with assistance of his primary care physician. At this time, the patient states that he is feeling much better and he is eager to return home. He has been cleared by physical therapy. At this time, I have advised the patient to follow-up with his primary care physician within one week. He is also to follow up with Dr. Florian of pulmonary within 2-4 weeks for repeat pulmonary function testing and further management of his underlying lung disease. DISCHARGE MEDICATIONS: Please see below. ALLERGIES: Please see below. PHYSICAL EXAMINATION ON DISCHARGE: VITAL SIGNS: Please see below. General Exam: Positive: Alert, Cooperative, No Acute Distress, Other (morbidly obese) Eye Exam: Positive: Conjunctiva & lids normal, Negative: Sclera icteric ENT Exam: Positive: Atraumatic, Mucous membr. moist/pink Neck Exam: Negative: Lymphadenopathy Chest Exam: Positive: Diminished, Negative: Wheezing Heart Exam: Positive: Rate Normal, Regular Rhythm, Normal S1, Normal S2, Negative: Tachycardic, Bradycardic, Gallops, Murmurs, Rubs Abdomen Exam: Positive: Soft, Negative: BS Hyperactive, BS Hypoactive, Tenderness Extremity Exam: Positive: Other (1+ pitting edema in the lower extremities B/L) Skin Exam: Positive: Rash (Diffuse psoriatic rash), Breakdown (Intertrigal folds with lara and some maceration of skin) Psych Exam: Positive: Oriented x 3 LABORATORY DATA: Please see below. IMAGING: PORTABLE CHEST, ONE VIEW: HISTORY: Tube placement. COMPARISON: 12:04 A.M., 01/04/2017. A minimal increase interstitial markings is present in the lungs consistent with chronic interstitial change. The heart is normal in size. The pulmonary vasculature is normal in appearance. An ET tube and central venous line are present. IMPRESSION: No acute disease. PROGNOSIS: Medically stable ACTIVITY: As tolerated. DIET: . Low-fat diet DISCHARGE PLAN: DISPOSITION: . Home DISCHARGE INSTRUCTIONS: 1. . Follow with primary care physician within one week 2. . Follow-up with pulmonary, Dr. Florian in 2-4 weeks 3. . Return to ER symptoms return or persist DISCHARGE CONDITION: Stable. TIME SPENT ON DISCHARGE: Greater than 30 minutes. Vital Signs/I&Os Vital Signs Date Time Temp Pulse Resp B/P (MAP) Pulse Ox O2 Delivery O2 Flow Rate FiO2 01/13/17 09:25 22 01/13/17 08:00 Nasal Cannula 3.0 01/13/17 06:00 96.7 90 132/64 (86) 96 01/08/17 12:43 30 I&O- Last 24 Hours up to 6 AM 01/13/17 06:00 Intake Total 1680 ml Output Total 1950 ml Balance -270 ml Laboratory Data Labs 24H Laboratory Tests 2 01/12/17 16:45: Bedside Glucose (Misc Panel) 277H 01/12/17 19:18: Bedside Glucose (Misc Panel) 258H 01/13/17 05:44: Anion Gap 2L, Glomerular Filtration Rate > 60.0, Blood Urea Nitrogen 19H, Creatinine 0.66L, Sodium Level 136, Potassium Level 4.9, Chloride Level 97L, Carbon Dioxide Level 37H, Calcium Level 8.7 01/13/17 07:27: Bedside Glucose (Misc Panel) 100 01/13/17 11:52: Bedside Glucose (Misc Panel) 248H CBC/BMP Laboratory Tests 01/13/17 05:44 Red Blood Count 4.20 L, Mean Corpuscular Volume 91.3, Mean Corpuscular Hemoglobin 29.3, Mean Corpuscular Hemoglobin Concent 32.1, Red Cell Distribution Width 13.2, Calcium Level 8.7 FSBS Laboratory Tests Test 01/12/17 16:45 01/12/17 19:18 01/13/17 07:27 01/13/17 11:52 Range/Units Bedside Glucose (Misc Panel) 277 258 100 248 70-105 MG/DL Microbiology Microbiology 01/06/17 Blood Culture - Final, Complete NO GROWTH AFTER 5 DAYS 01/06/17 Blood Culture - Final, Complete NO GROWTH AFTER 5 DAYS 01/04/17 Blood Culture - Final, Complete Staphylococcus Aureus 01/04/17 Blood Culture - Final, Complete NO GROWTH AFTER 5 DAYS 01/06/17 Gram Stain - Final, Complete 01/06/17 Sputum Culture - Final, Complete Staphylococcus Aureus Strep Agalactiae Group B Klebsiella Oxytoca 01/04/17 Gram Stain - Final, Complete 01/04/17 Sputum Culture - Final, Complete Staphylococcus Aureus Discharge Medications Scheduled (Apidra) 100 Unit/Ml Inj, 15 UNIT INJ WM, (Reported) Albuterol/Ipratropium (Combivent Respimat 20-100 Mcg/Act) 1 Aer Aer, 1 PUFF INH QID, (Reported) Albuterol/Ipratropium (Ipratropium [place]/Albut 0.5-2.5 (3) mg/3Ml) 1 Donell Donell, 1 DONELL INH QID, (Reported) Furosemide (Furosemide) 40 Mg Tab, 40 MG PO DAILY Insulin Detemir (Levemir) 1 Units/0.01 Ml Susp, 20 UNITS SC BID Metformin Hydrochloride (Metformin HCl) 500 Mg Tab, 1,000 MG PO BID, (Reported) Prednisone (Prednisone) 5 Mg Tab, 15 MG PO DAILY, (Reported) Ramipril (Ramipril) 5 Mg Cap, 5 MG PO DAILY, (Reported) Salmeterol/Fluticasone (Advair Hfa 230-21 Mcg/Act) 1 Aer Aer, 2 PUFF INH BID Sitagliptin Phosphate (Januvia) 100 Mg Tab, 100 MG PO DAILY, (Reported) Scheduled PRN Albuterol Sulfate (Proair Hfa) 108 Mcg/Act Aer, 2 PUFF INH Q4H PRN for SHORTNESS OF BREATH, (Reported) Albuterol/Ipratropium (Ipratropium [place]/Albut 0.5-2.5 (3) mg/3Ml) 1 Donell Donell, 1 DONELL INH Q4H PRN for SHORTNESS OF BREATH, (Reported) Allergies Coded Allergies: Penicillins (Unverified Allergy, Severe, ANAPHYLAXIS, 01/04/17) KATHE DOE MD Jan 13, 2017 14:19
== END 2017-01-13 14:13 | disposition home or self-care (01) | DRG 871 ==
LOC: M ICU 01-04 00:46 → M PCU 01-06 22:21 → M MS5PR 01-07 21:24
PROC: 5A1945Z Respiratory Ventilation, 24-96 Consecutive Hours (ICD-10-PCS; principal; 2017-01-05)
DX: A41.9 Sepsis, unspecified organism (principal); J96.02 Acute respiratory failure with hypercapnia; J18.9 Pneumonia, unspecified organism; J96.21 Acute and chronic respiratory failure with hypoxia; N17.9 Acute kidney failure, unspecified; I50.30 Unspecified diastolic (congestive) heart failure; E11.9 Type 2 diabetes mellitus without complications; E66.01 Morbid (severe) obesity due to excess calories; I95.9 Hypotension, unspecified; F17.210 Nicotine dependence, cigarettes, uncomplicated; I11.0 Hypertensive heart disease with heart failure; J44.9 Chronic obstructive pulmonary disease, unspecified; G47.33 Obstructive sleep apnea (adult) (pediatric); Z99.89 Dependence on other enabling machines and devices; Z79.4 Long term (current) use of insulin; Z79.52 Long term (current) use of systemic steroids; Z88.0 Allergy status to penicillin; Z79.899 Other long term (current) drug therapy; Z99.81 Dependence on supplemental oxygen; N49.2 Inflammatory disorders of scrotum; B95.61 Methicillin susceptible Staphylococcus aureus infection as the cause of diseases classified elsewhere; B95.1 Streptococcus, group B, as the cause of diseases classified elsewhere